=== PATIENT | female | born 1990 | race Two or more races ===

== ENCOUNTER 2016-12-06 15:58 | Outpatient (CLI) | payer MEDICAID | END 2016-12-06 15:59 | disposition home or self-care (01) | DX: O10.011 Pre-existing essential hypertension complicating pregnancy, first trimester (principal) ==

== ENCOUNTER 2016-12-16 14:36 | Outpatient (CLI) | payer MEDICAID | END 2016-12-16 14:37 | DX: Z11.3 Encounter for screening for infections with a predominantly sexual mode of transmission (principal); R82.99 Other abnormal findings in urine ==

== ENCOUNTER 2016-12-30 19:04 | Outpatient (CLI) | payer MEDICAID | END 2016-12-30 19:05 | disposition home or self-care (01) | DX: R82.99 Other abnormal findings in urine (principal); Z36 Encounter for antenatal screening of mother ==

== ENCOUNTER 2016-12-31 16:39 | Outpatient (CLI) | payer MEDICAID | END 2016-12-31 16:40 | disposition home or self-care (01) | DX: Z11.3 Encounter for screening for infections with a predominantly sexual mode of transmission (principal); Z36 Encounter for antenatal screening of mother; R82.99 Other abnormal findings in urine ==

== ENCOUNTER 2017-01-21 11:15 | Outpatient (CLI) | payer MEDICAID | END 2017-01-21 23:59 | disposition home or self-care (01) | DX: Z36 Encounter for antenatal screening of mother (principal) ==

== ENCOUNTER 2017-02-11 08:00 | Outpatient (CLI) | payer MEDICAID | END 2017-02-11 08:01 | disposition home or self-care (01) | DX: R30.0 Dysuria (principal) ==

== ENCOUNTER 2017-02-23 09:21 | Emergency (ER) | payer MEDICAID ==
[2017-02-23 09:45] LABS: RAPID STREP SCREEN REAGENT QC YELLOW (YELLOW)
[2017-02-23] MEDS ORDERED: ACETAMINOPHEN 325 MG TABLET PO ONE (09:49)
[2017-02-23] MEDS: ACETAMINOPHEN 325 MG TABLET PO STA (09:57)
--- NOTE | 2017-02-23 10:04 | ED Physician Documentation ---
History of Present Illness - Stated complaint Stated Complaint: FEVER/SORE THROAT/19 WKS PREG - Chief complaint Chief Complaint: Heent - Additonal information Additional information: hx from pt 27 female 19 weeks EGA fever mylagia sore throat minimal cough NV X 1 ill with same s complication ecept HTN for which she takes meds feeling baby move Review of Systems Constitutional: reports: Fever, Myalgias Throat: reports: Sore throat Respiratory: denies: Cough (minimal) GI: reports: Vomiting. denies: Abdominal Pain : reports: Now EGA (19 weeks) Endocrine: denies: Easy bruising / bleeding Immunocompromised: denies: Immunocompromised PD PAST MEDICAL HISTORY - Past Medical History Past Medical History: Yes Cardiovascular: Hypertension - Past Surgical History Past Surgical History: No - Present Medications Home Medications: Ambulatory Orders Medication Instructions Recorded Confirmed Metoprolol Tartrate 02/23/17 - Allergies Allergies/Adverse Reactions: Allergies Allergy/AdvReac Type Severity Reaction Status Date / Time No Known Drug Allergies Allergy Verified 02/23/17 09:31 - Social History Does the pt smoke?: No Smoking Status: Never smoker Does the pt drink ETOH?: No Does the pt have substance abuse?: No - Immunizations Immunizations are current?: Yes - POLST Patient has POLST: No PD ED PE NORMAL - Vitals Vital signs reviewed: Yes (HTN tachy) - General General: Alert and oriented X 3 - HEENT HEENT: Ears normal, Moist mucous membranes. No: Pharynx benign (erythema, no exudate seen) - Neck Neck: Supple, no meningeal sign - Cardiac Cardiac: RRR - Respiratory Respiratory: No respiratory distress, Clear bilaterally - Abdomen Abdomen: Soft, Non tender, Other (gravid) - Derm Derm: Normal color Results - Vitals Vitals: Vital Signs - 24 hr 02/23/17 02/23/17 02/23/17 09:29 10:20 11:12 Temperature 36.4 C L 36.8 C Heart Rate 132 H 114 H 112 H Respiratory 18 16 12 Rate Blood Pressure 139/79 H 117/72 120/80 O2 Saturation 100 100 100 Oxygen O2 Source Room air - Labs Labs: Laboratory Tests 02/23/17 09:26 Group A Strep Rapid Negative PD MEDICAL DECISION MAKING - ED course ED course: HR and temp better with tylenol tachycardia appreciated - felt 2/2 preg and fever and not drinking 2/2 sore throat lungs clear doubt pna no leg swelling no dyspnea cough and pt has myalgias etc similar to so doubt PE no recent local influenza activity and pt has minimal cough pt is well appearing and I do not think she is septic will dc with fever control, cepacol lozenges safe in preg, PO fluids and OB fup within 48 hr for a recheck explained all this to pt and friend/family HTN is not new for pt - she is on meds for same - only 19 weeks EGA - doubt pre- eclampsia Departure - Departure Disposition: 01 Home, Self Care Clinical Impression: Viral URI Qualifiers: Weeks of gestation: 19 weeks Qualified Code(s): Z3A.19 - 19 weeks gestation of Condition: Good Instructions: ED Viral Syndrome Follow-Up: Linda Davis ARNP [Primary Care Provider] - (for a recheck tomorrow ) Comments: The rapid strep test was negative - a throat culture will be run as well and we will call you if it is positive and you need to be on antibiotics Your lungs sound clear, I do not think you have pneumonia. Recommend tylenol 650 mg every 6 hr for the fever Cepacol lozenges for your sore throat are safe in - available over the counter. Your blood pressure was high even though you took your blood pressure medication this morning - your heart was up too likely in paert due to the fever You need to drink lots of fluids even if your throat hurts. And please follow up with your OB or PMD tomorrow for a recheck Return to the ER sooner if worse or new symptoms develop Forms: Activity restrictions Discharge Date/Time: 02/23/17 11:14
[2017-02-23 11:13] VITALS: BP 120/80
== END 2017-02-23 11:14 | disposition home or self-care (01) ==
LOC: ED 09:21
DX: O99.512 Diseases of the respiratory system complicating pregnancy, second trimester (principal); J06.9 Acute upper respiratory infection, unspecified; O98.512 Other viral diseases complicating pregnancy, second trimester; B33.8 Other specified viral diseases; O16.2 Unspecified maternal hypertension, second trimester; Z3A.19 19 weeks gestation of pregnancy
CPT/HCPCS: 87070; 87430; 99283

== ENCOUNTER 2017-02-27 22:52 | Emergency (ER) | payer MEDICAID ==
--- NOTE | 2017-02-27 23:56 | ED Physician Documentation ---
PD HPI URI - Stated complaint Stated Complaint: COUGH/SINUS - 20WK OB - Chief complaint Chief Complaint: Resp - History obtained from History obtained from: Patient - History of Present Illness Timing - onset: How many days ago (has had some congestion and cough, but worse cough for 4 days and sinus pressure with greenish discharge now for few days.) Timing details: Gradual onset, Still present (worsening recent) Associated symptoms: Chills, Nasal congestion, Sinus pain, Sore throat, Productive cough. No: Fever, Swollen nodes, Hemoptysis, Chest pain, Dyspnea, NVD Contributing factors: No: COPD / asthma Similar symptoms before: Has not had sx before Recently seen: Not recently seen Review of Systems Constitutional: reports: Fever, Chills Ears: denies: Ear pain Nose: reports: Congestion, Sinus pressure / pain Throat: reports: Sore throat Cardiac: denies: Chest pain / pressure Respiratory: reports: Cough, Wheezing GI: denies: Abdominal Pain, Nausea, Vomiting : denies: Discharge, Vaginal bleeding PD PAST MEDICAL HISTORY - Past Medical History Past Medical History: Yes Cardiovascular: Hypertension Respiratory: None 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 () - Past Surgical History Past Surgical History: No - Present Medications Home Medications: Ambulatory Orders Medication Instructions Recorded Confirmed Metoprolol Tartrate 02/23/17 Amoxicillin 500 mg PO TID #15 capsule 02/28/17 Dexamethasone [Decadron] 4 mg PO DAILY #5 tablet 02/28/17 - Allergies Allergies/Adverse Reactions: Allergies Allergy/AdvReac Type Severity Reaction Status Date / Time No Known Drug Allergies Allergy Verified 02/23/17 09:31 - Social History Does the pt smoke?: No Smoking Status: Never smoker Does the pt drink ETOH?: No Does the pt have substance abuse?: No - Immunizations Immunizations are current?: Yes - POLST Patient has POLST: No PD ED PE NORMAL - Vitals Vital signs reviewed: Yes - General General: Alert and oriented X 3, No acute distress, Well developed/nourished - HEENT HEENT: Ears normal, Moist mucous membranes, Pharynx benign, Other (some sinus tenderness to percussion) - Neck Neck: Supple, no meningeal sign, No adenopathy - Cardiac Cardiac: RRR, No murmur - Respiratory Respiratory: Other (scattered wheezing with cough. Repetitive coughing episodes. ) - Abdomen Abdomen: Soft, Non tender, Other (gravid with fundus at umbilicus. Good FHR noted. ) - Derm Derm: Normal color, Warm and dry Results - Vitals Vitals: Vital Signs - 24 hr 02/27/17 02/28/17 22:59 00:57 Temperature 37.0 C Heart Rate 110 H 109 H Respiratory 18 18 Rate Blood Pressure 127/84 H 131/83 H O2 Saturation 100 98 Oxygen O2 Source Room air PD MEDICAL DECISION MAKING - ED course Complexity details: considered differential (URI symptoms and now sinusitis more. Having cough and some wheezing. Can treat with MDI, short course steroids , can give abx for sinusitis aspect. ), d/w patient Departure - Departure Disposition: Home, Self Care Clinical Impression: Upper respiratory tract infection Qualifiers: URI type: unspecified URI Qualified Code(s): J06.9 - Acute upper respiratory infection, unspecified Sinusitis Qualifiers: Sinusitis location: frontal Chronicity: acute Recurrence: non-recurrent Qualified Code(s): J01.10 - Acute frontal sinusitis, unspecified Condition: Stable Record reviewed to determine appropriate education?: Yes Instructions: ED Sinusitis Abx Tx Follow-Up: Linda Davis ARNP [Primary Care Provider] - Prescriptions: Amoxicillin 500 mg PO TID #15 capsule Dexamethasone [Decadron] 4 mg PO DAILY #5 tablet Print Language: Malawian Comments: Drink lots of fluids. Tylenol as needed for fevers and pains. Use the Albuterol inhaler 2 puffs 4 times daily for 7-10 days. Decadron daily for 5 more days to reduce bronchiole inflammation and thus the cough. Amoxicillin 3 times daily as directed to try to help with the infection. Follow up with PMD if not improved over the next few days. Discharge Date/Time: 02/28/17 00:58
[2017-02-28] MEDS ORDERED: DEXAMETHASONE 10 MG/ML VIAL PO STA (00:15)
[2017-02-28] MEDS ORDERED: AMOXICILLIN 250 MG CAPSULE PO STA (00:15)
[2017-02-28] MEDS ORDERED: ALBUTEROL 8 GM INHALER INH STA (00:15)
[2017-02-28] MEDS ORDERED: guaiFENesin/CODEINE 5 ML UDC PO STA (00:17)
[2017-02-28] MEDS ORDERED: DEXAMETHASONE 10 MG/ML VIAL ONE (00:22)
[2017-02-28] MEDS ORDERED: AMOXICILLIN 250 MG CAPSULE PO ONE (00:22)
[2017-02-28] MEDS ORDERED: guaiFENesin/CODEINE 5 ML UDC ONE (00:22)
[2017-02-28] MEDS ORDERED: ALBUTEROL 18 GM INHALER INH ONE (00:32)
[2017-02-28 00:58] VITALS: BP 131/83
== END 2017-02-28 00:58 | disposition home or self-care (01) ==
LOC: ED 22:52
DX: O99.512 Diseases of the respiratory system complicating pregnancy, second trimester (principal); J06.9 Acute upper respiratory infection, unspecified; J01.10 Acute frontal sinusitis, unspecified; O16.2 Unspecified maternal hypertension, second trimester; Z3A.20 20 weeks gestation of pregnancy; Z36 Encounter for antenatal screening of mother
CPT/HCPCS: 76811; 94640; 99283; A9270

== ENCOUNTER 2017-02-28 07:28 | Outpatient (CLI) | payer MEDICAID ==
--- NOTE | 2017-02-28 15:50 | Ultrasound Report ---
OB ULTRASOUND: 02/28/2017 CLINICAL HISTORY: Screening of anatomy. Age by LMP today is supposedly 20.5 weeks. TECHNIQUE: Real-time scanning was performed with front office representative static images obtained. LAST MENSTRUAL PERIOD 10/08/2016 Clinical Age 20 weeks 3 days US Age 20 weeks 3 days EFW Hadlock 367 g EFW% Hadlock 57% Heart Rate 140 bpm EDC 07/15/2017 US EDC 07/15/2017 BPD Hadlock 20 weeks 2 days; Mean mm 47.4 HC Hadlock 20 weeks 1 day; Mean mm 177.2 AC Hadlock 20 weeks 4 days; Mean mm 153.8 FL Hadlock 20 weeks 6 days; Mean mm 34.5 Presentation --- Placental Location posterior Cervical Length 4.9 cm Amniotic Fluid 14.8 cm FINDINGS: Single fetus is noted . position varied from breech to transverse.. Composite gestational age by ultrasound today is 20 weeks 3 days.. anatomy at the present time appears within normal limits but because of mother's body habitus, it was difficult to optimally visualize all areas of the fetus as well as usual. head, body, spine appear normal. bladder appears normal. Normal 3-vessel umbilical cord is seen; 4-chamber view of the heart is within normal limits. Cardiac outflow tract showed no obvious abnormality. Preeti cardiac activity was noted with a heart rate of 140 BPM and regular. Placenta is posterior and no evidence of placenta previa was seen. Normal amount of amniotic fluid was noted with amniotic fluid volume index of 14.8 cm. Placenta is posterior and fundally located with umbilical cord insertion site slightly eccentric. IMPRESSION: 1. SINGLE FETUS IS NOTED. POSITION VARIED FROM BREECH TO TRANSVERSE WITH COMPOSITE GESTATIONAL AGE OF 20 WEEKS 3 DAYS. THIS CORRELATES EXACTLY WITH EXPECTED GESTATIONAL AGE BY CLINICAL LMP. EDC BY ULTRASOUND IS 07/15/2017. 2. ANATOMY ON TODAY'S EXAM APPEARS NORMAL. 3. POSTERIOR AND FUNDALLY LOCATED PLACENTA IS NOTED. 4. NORMAL AMOUNT OF AMNIOTIC FLUID WITH AMNIOTIC FLUID VOLUME INDEX OF 14.8 CM. MTDD
== END 2017-02-28 07:29 | disposition home or self-care (01) ==
LOC: DI 07:28
PROVIDERS: ATTEND Obstetrics & Gynecology
DX: Z36 Encounter for antenatal screening of mother (principal)
CPT/HCPCS: 76811

== ENCOUNTER 2017-03-14 13:44 | Outpatient (CLI) | payer MEDICAID ==
[2017-03-14 19:21] LABS: BASOPHILS # (AUTO) 0.1 10^3/uL (0.0-0.1); BASOPHILS % (AUTO) 0.7 %; BILIRUBIN,URINE NEGATIVE (NEGATIVE); EOSINOPHILS % (AUTO) 0.2 %; HGB - HEMOGLOBIN 11.4 g/dL (12.0-16.0); LYMPHOCYTES # (AUTO) 2.2 10^3/uL (1.5-3.5); LYMPHOCYTES % (AUTO) 18.4 %; MEAN CORPUSCULAR HGB CONC 32.6 g/dL (32.0-36.0); MEAN CORPUSCULAR VOLUME 79.7 fL (81.0-99.0); MEAN PLATELET VOLUME 8.7 fL (7.9-10.8); MONOCYTES # (AUTO) 0.4 10^3/uL (0.0-1.0); MONOCYTES % (AUTO) 3.7 %; PH,URINE 5.5 PH (5.0-7.5); RED BLOOD COUNT 4.39 10^6/uL (4.20-5.40); RED CELL DISTRIBUTION WIDTH 16.6 % (12.0-15.0); UNCORRECTED WHITE BLOOD COUNT 11.7 x10^3/uL; WHITE BLOOD COUNT 11.7 x10^3/uL (4.8-10.8)
[2017-03-14 19:28] LABS: CREATININE 0.6 mg/dL (0.4-1.0); URIC ACID 3.1 mg/dL (2.6-7.2)
== END 2017-03-14 13:45 | disposition home or self-care (01) ==
LOC: LAB.N 13:44
PROVIDERS: ATTEND Obstetrics & Gynecology
DX: R03.0 Elevated blood-pressure reading, without diagnosis of hypertension (principal)
CPT/HCPCS: 36415; 81001; 82565; 83615; 84450; 84550; 85025

== ENCOUNTER 2017-04-07 20:10 | Outpatient (CLI) | payer MEDICAID | END 2017-04-07 20:11 | disposition home or self-care (01) | LOC: LAB.N 20:10 | PROVIDERS: ATTEND Obstetrics & Gynecology | DX: Z36 Encounter for antenatal screening of mother (principal) | CPT/HCPCS: 36415; 82950; 85018; 86850 ==

== ENCOUNTER 2017-04-29 07:50 | Outpatient (CLI) | payer MEDICAID ==
[2017-04-29 08:42] LABS: GTT GLUCOSE,FASTING 106 mg/dL (70-100)
== END 2017-04-29 07:51 | disposition home or self-care (01) ==
LOC: LAB 07:50
PROVIDERS: ATTEND Obstetrics & Gynecology
DX: Z36 Encounter for antenatal screening of mother (principal)
CPT/HCPCS: 36415; 82951

== ENCOUNTER 2017-05-19 14:33 | Outpatient (CLI) | payer MEDICAID ==
--- NOTE | 2017-05-20 11:03 | Ultrasound Report ---
OB FOLLOWUP: 05/19/2017 CLINICAL INDICATION: Gestational diabetes, check growth. TECHNIQUE: Real-time scanning was performed with hostess party sales representative static images obtained. LAST MENSTRUAL PERIOD 10/08/2016 Clinical Age 31 weeks 6 days US Age 32 weeks 4 days EFW Hadlock 1875 g EFW% Hadlock 48% Heart Rate 150 bpm EDC 07/15/2017 US EDC 07/10/2017 BPD Hadlock 32 weeks 2 days; Mean mm 80.4 HC Hadlock 32 weeks 6 days; Mean mm 297.5 AC Hadlock 31 weeks 4 days; Mean mm 274.6 FL Hadlock 32 weeks 2 days; Mean mm 62.3 Presentation --- Placental Location posterior Cervical Length 4.7 cm Amniotic Fluid 16.2 cm FINDINGS: There is a single viable intrauterine gestation, in variable position. heart rate is 150 BPM. The placenta is posterior, without evidence of previa. Amniotic fluid volume is normal, with an NADYA of 16.2. By size, the fetus now measures 32.6 weeks (31.9 weeks by LMP dating). No free fluid or adnexal lesion is appreciated. IMPRESSION: SINGLE VIABLE INTRAUTERINE GESTATION, WITH SIZE IN KEEPING WITH LMP DATING. MTDD
== END 2017-05-19 14:34 | disposition home or self-care (01) ==
LOC: DI 14:33
PROVIDERS: ATTEND Obstetrics & Gynecology
DX: O10.413 Pre-existing secondary hypertension complicating pregnancy, third trimester (principal)
CPT/HCPCS: 76816

== ENCOUNTER 2017-05-26 10:32 | Outpatient (CLI) | payer MEDICAID ==
[2017-05-26 11:33] VITALS: BP 113/70
== END 2017-05-26 11:42 | disposition home or self-care (01) ==
LOC: WFO 10:32 → FBP 10:35 → WFO 11:42
PROVIDERS: ATTEND Obstetrics & Gynecology
DX: O10.913 Unspecified pre-existing hypertension complicating pregnancy, third trimester (principal); Z3A.32 32 weeks gestation of pregnancy
CPT/HCPCS: 59025

== ENCOUNTER 2017-06-05 11:21 | Outpatient (CLI) | payer MEDICAID ==
[2017-06-05 11:40] VITALS: BP 116/75
== END 2017-06-05 12:10 | disposition home or self-care (01) ==
LOC: WFO 11:21 → FBP 11:24 → WFO 12:10
PROVIDERS: ATTEND Obstetrics & Gynecology
DX: O24.419 Gestational diabetes mellitus in pregnancy, unspecified control (principal); O13.3 Gestational [pregnancy-induced] hypertension without significant proteinuria, third trimester; Z3A.34 34 weeks gestation of pregnancy
CPT/HCPCS: 59025

== ENCOUNTER 2017-06-10 14:53 | Outpatient (CLI) | payer MEDICAID ==
[2017-06-10 15:18] VITALS: BP 113/75
== END 2017-06-10 15:40 | disposition home or self-care (01) ==
LOC: WFO 14:53 → FBP 14:55 → WFO 15:40
PROVIDERS: ATTEND Obstetrics & Gynecology
DX: O10.913 Unspecified pre-existing hypertension complicating pregnancy, third trimester (principal); Z3A.35 35 weeks gestation of pregnancy
CPT/HCPCS: 59025

== ENCOUNTER 2017-06-13 08:00 | Outpatient (CLI) | payer MEDICAID | END 2017-06-13 08:01 | disposition home or self-care (01) | LOC: LAB.R 08:00 | PROVIDERS: ATTEND Obstetrics & Gynecology | DX: Z34.83 Encounter for supervision of other normal pregnancy, third trimester (principal) | CPT/HCPCS: 87081 ==

== ENCOUNTER 2017-06-16 14:49 | Outpatient (CLI) | payer MEDICAID ==
[2017-06-16 15:28] VITALS: BP 115/72
== END 2017-06-16 15:30 | disposition home or self-care (01) ==
LOC: WFO 14:49 → FBP 14:51 → WFO 15:30
PROVIDERS: ATTEND Obstetrics & Gynecology
DX: O10.913 Unspecified pre-existing hypertension complicating pregnancy, third trimester (principal); Z3A.35 35 weeks gestation of pregnancy
CPT/HCPCS: 59025

== ENCOUNTER 2017-06-23 14:48 | Outpatient (CLI) | payer MEDICAID ==
[2017-06-23 15:02] VITALS: BP 111/78
== END 2017-06-23 15:30 | disposition home or self-care (01) ==
LOC: WFO 14:48 → FBP 14:50 → WFO 15:30
PROVIDERS: ATTEND Obstetrics & Gynecology
DX: O24.419 Gestational diabetes mellitus in pregnancy, unspecified control (principal); O13.3 Gestational [pregnancy-induced] hypertension without significant proteinuria, third trimester; Z3A.36 36 weeks gestation of pregnancy
CPT/HCPCS: 59025

== ENCOUNTER 2017-06-30 14:57 | Outpatient (CLI) | payer MEDICAID ==
[2017-06-30 15:41] VITALS: BP 113/69
== END 2017-06-30 15:55 | disposition home or self-care (01) ==
LOC: WFO 14:57 → FBP 15:00 → WFO 15:55
PROVIDERS: ATTEND Obstetrics & Gynecology
DX: O10.913 Unspecified pre-existing hypertension complicating pregnancy, third trimester (principal); Z3A.37 37 weeks gestation of pregnancy
CPT/HCPCS: 59025

== ENCOUNTER 2017-07-07 14:51 | Outpatient (CLI) | payer MEDICAID ==
[2017-07-07 15:12] VITALS: BP 114/76
== END 2017-07-07 15:37 | disposition home or self-care (01) ==
LOC: WFO 14:51 → FBP 14:54 → WFO 15:37
PROVIDERS: ATTEND Obstetrics & Gynecology
DX: O24.419 Gestational diabetes mellitus in pregnancy, unspecified control (principal); O13.3 Gestational [pregnancy-induced] hypertension without significant proteinuria, third trimester; Z3A.38 38 weeks gestation of pregnancy
CPT/HCPCS: 59025

== ENCOUNTER 2017-07-14 14:53 | Outpatient (CLI) | payer MEDICAID ==
[2017-07-14 15:18] VITALS: BP 122/84
== END 2017-07-14 16:15 | disposition home or self-care (01) ==
LOC: WFO 14:53 → FBP 15:02 → WFO 16:15
PROVIDERS: ATTEND Obstetrics & Gynecology
DX: O10.913 Unspecified pre-existing hypertension complicating pregnancy, third trimester (principal); Z3A.39 39 weeks gestation of pregnancy
CPT/HCPCS: 59025

== ENCOUNTER 2017-07-15 17:12 | Inpatient (IN) | payer MEDICAID ==
[2017-07-15] MEDS ORDERED: SODIUM CHLORIDE FLUSH 0.9% 10 ML SYRINGE IVP PRN (19:01)
[2017-07-15] MEDS ORDERED: fentaNYL 100 MCG/2 ML VIAL IVP PRN (19:07)
[2017-07-15] MEDS ORDERED: ACETAMINOPHEN 325 MG TABLET PO PRN (19:07)
[2017-07-15 21:06] LABS: BASOPHILS # (AUTO) 0.1 10^3/uL (0.0-0.1); BASOPHILS % (AUTO) 0.5 %; EOSINOPHILS % (AUTO) 0.1 %; HGB - HEMOGLOBIN 12.6 g/dL (12.0-16.0); LYMPHOCYTES # (AUTO) 2.2 10^3/uL (1.5-3.5); LYMPHOCYTES % (AUTO) 20.4 %; MEAN CORPUSCULAR HEMOGLOBIN 26.2 pg (27.0-31.0); MEAN CORPUSCULAR HGB CONC 33.3 g/dL (32.0-36.0); MEAN CORPUSCULAR VOLUME 78.9 fL (81.0-99.0); MEAN PLATELET VOLUME 9.3 fL (7.9-10.8); MONOCYTES # (AUTO) 0.5 10^3/uL (0.0-1.0); MONOCYTES % (AUTO) 4.4 %; NEUTROPHILS # (AUTO) 7.9 10^3/uL (1.5-6.6); NEUTROPHILS % (AUTO) 74.6 %; RED BLOOD COUNT 4.81 10^6/uL (4.20-5.40); RED CELL DISTRIBUTION WIDTH 15.9 % (12.0-15.0); UNCORRECTED WHITE BLOOD COUNT 10.6 x10^3/uL; WHITE BLOOD COUNT 10.6 x10^3/uL (4.8-10.8)
[2017-07-15] MEDS: LABETALOL 100 MG TABLET PO SCH (21:11)
[2017-07-15 21:26] LABS: HEMOGLOBIN A1C 0.54 g/dL
[2017-07-15] MEDS ORDERED: SODIUM CHLORIDE FLUSH 0.9% 10 ML SYRINGE IVP SCH (22:00)
[2017-07-16] MEDS ORDERED: DINOPROSTONE 10 MG SUPP VG ONE (07:30)
[2017-07-16] MEDS: LABETALOL 100 MG TABLET PO SCH ×2 (09:43→21:34)
--- NOTE | 2017-07-16 11:54 | HISTORY & PHYSICAL EXAMINATION ---
DATE OF ADMISSION: 07/15/2017 IDENTIFICATION: This is a 27-year-old G1, P0, with a 40-week 0-day intrauterine . EDC is 07/2017, consistent with a 9-week ultrasound. HISTORY OF PRESENT ILLNESS: She is a patient of [facility] [place] [facility], whom we have been seeing since 9 weeks of gestation on 12/16/2016. The patient's has been significant for chronic hy pertension. The patient was already on metoprolol when she became . This was switched over to labetalol at 22 weeks of gestation. She has been doing well on 100 mg 1 tab p.o. b.i.d. The patient was also diagnosed with gestational diabetes class A1. She had an abnormal 1-hour GTT on 04/07/2017 o f 158. The resultant 3-hour GTT was significant for elevated fasting, 1-hour, and 2-hour results of 1 06, 212, and 176, respectively. The 3-hour test result was normal at 115. The patient has been doing peripheral capillary glucose checks, and they have been well controlled just by diet. The patient has been getting non-stress tests since 32 weeks of gestation secondary to chronic hypertension, on labe talol. The patient presented today for her routine visit at 40 weeks 0 days of gestation. A bedsid e ultrasound revealed that she had a grade 3 placenta and a decreased amniotic fluid index of 4.61 cm . The fetus was noted to be in a vertex presentation. Cervical examination showed that the patient wa s closed, thick, and high. Given that the patient was full term, has oligohydramnios, and is a chroni c hypertensive on medications, I have recommended to the patient that we proceed to delivery. Of sign ificance is the oligohydramnios, most likely secondary to an aging placenta and may lead to the incre ased risk of mortality. I would recommend for the patient to have Cervidil ripening overnight a nd hopefully start to try Pitocin in the morning. After all of the patient's questions were answered to her satisfaction, she verbalized her desire to proceed with induction of labor. Currently, we are waiting for a nurse from Labor and Delivery in order to accommodate the patient's clinical situation. The patient otherwise states that her baby boy is moving well. She denies any contractions, vaginal b leeding, or loss of fluid. She is accompanied today by her . PAST MEDICAL HISTORY 1. Morbid obesity with a BMI of 40. 2. Chronic hypertension. 3. Hemorrhoids. 4. Lumbar pain. PAST SURGICAL HISTORY: None. ALLERGIES: NO KNOWN DRUG ALLERGIES. MEDICATIONS 1. vitamins. 2. Labetalol 100 mg 1 tab p.o. b.i.d. 3. Proctofoam HC. SOCIAL HISTORY: She denies any tobacco, alcohol, or illicit drug use. The patient is from [place] , and this is a baby boy. She has a sister. Her preferred pharmacy is [email or web address]. Her PCP is a nurse Feliberto head. PAST OBSTETRICAL HISTORY: Current. PAST GYNECOLOGIC HISTORY: She denies any abnormal Pap smears or sexually transmitted diseases. FAMILY HISTORY: Mother with diabetes and brother with hypertension. REVIEW OF SYSTEMS: Negative unless otherwise stated. The patient denies any nausea, vomiting, fevers, chills, diarrhea, or constipation. OBJECTIVE VITAL SIGNS: Blood pressure is 110/74. Weight is 252 pounds. GENERAL: The patient is a well-developed, well-nourished Burmese in no apparent distress. She is alert and oriented x3. The patient does speak limited Turkmen and is fluid in Kinyarwanda. HEENT: Within normal limits. CARDIOVASCULAR: Rate is regular. No murmurs or rubs. PULMONARY: Lungs clear to auscultation bilaterally. ABDOMEN: Gravid and nontender. Fundal height is 40 cm. Estimated weight is 8-1/2 pounds. The fe tus is vertex by ultrasound, with an amniotic fluid index of 4.61 cm. LABORATORY DATA: Urinalysis is negative for protein and glucose. Her labs showed she is chla mydia and gonorrhea negative. Blood type is A-positive. HIV is negative. RPR nonreactive. Rubella non -immune. Hepatitis B surface antigen is nonreactive. One-hour GTT on 12/23/2016 was 129. Repeat was 1 58. Quad screen is negative. A 3-hour GTT showed a fasting of 106, a 1-hour of 112, a 2-hour of 176, and a 3-hour of 115. GBS is negative. Baseline preeclampsia panel obtained on 03/14/2017 showed a cre atinine 0.6, GFR 120, uric acid 3.1, AST 38, LDH 125. Platelets 230. anatomical survey is withi n normal limits and consistent with dates. The placenta is posterior. Cervical length is 4.9 cm. Amni otic fluid index is 14.8 cm. ASSESSMENT 1. A 27-year-old G1, P0, with a 40-0/7-week intrauterine . 2. Oligohydramnios, with an amniotic fluid index of 4.61 cm. 3. Controlled chronic hypertension, on labetalol 100 mg 1 tab p.o. b.i.d. 4. Gestation diabetes mellitus A1. 5. Cervix remote from delivery. PLAN 1. We will begin cervical ripening with Cervidil overnight once we have gotten hold of the RN to help take care of the patient. 2. We will get a CBC with type and hold. 3. Epidural for pain relief when the patient desires. 4. Closely monitor the patient's blood pressure for signs and symptoms of superimposed preeclampsia. Her blood pressure has been controlled well throughout the otherwise. 5. We will obtain a random glucose as well as a hemoglobin A1c. JOB #: [id number] EXT JOB #:[id number]
[2017-07-16] MEDS ORDERED: DINOPROSTONE 10 MG SUPP VG SCH (20:33)
[2017-07-16] MEDS ORDERED: SODIUM CHLORIDE FLUSH 0.9% 10 ML SYRINGE IVP PRN (20:37)
--- NOTE | 2017-07-16 21:43 | HISTORY & PHYSICAL EXAMINATION ---
DATE OF ADMISSION: 07/16/2017 DIAGNOSES 1. A 40-week gestation, induction candidate. 2. Chronic hypertension. 3. Gestational diabetes, diabetes class A1. 4. Oligohydramnios. HISTORY OF THE PRESENT ILLNESS: The patient is a 27-year-old primigravida at 40 weeks 0 days who [facility] Her history is remarkable for chronic hypertension. She was on lisinopril prior to and changed to labetalol. Baseline blood pressure was 120/80 and has stayed normotensive. Today's office blood pressure was 110/74 , and she was negative for protein. Additionally, she has gestational diabetes and has maintained target blood glucoses with diet and exercise. Obesity is a concern. Her baseline weight was 240 and most recently 252. LMP October 08, 2016. EDC dates at July 15, 2017. Nine-week ultrasound at December 2012 yields an EDC of July 17. Therefore, we will use July 15, 2017 as confirmed EDC. BASELINE LABS: GC chlamydia screen negative. Blood type A positive. Antibody screen negative. HIV negative. Glucose challenge test 158. Three-hour GTT (106 fasting, 212 one hour, 176 two hours, 115 three hours) GBS status negative. PAST MEDICAL HISTORY: Hypertension, as noted in HPI. No history of diabetes. FAMILY HISTORY: Diabetes and CAD, mother; hypertension, brother; maternal relatives, hyperlipidemia, osteoarthritis. No inheritable diseases known or genetic conditions. ALLERGIES: NO KNOWN DRUG ALLERGIES. MEDICATIONS 1. ProctoFoam HC. 2. Labetalol 100 b.i.d. 3. Glucose testing supplies. PHYSICAL EXAMINATION: GENERAL: Alert, oriented, pleasant demeanor. VITAL SIGNS: Blood pressure HEENT: Supple neck. No thyromegaly. Dentition in good repair. EOMI. Nonicteric sclerae. LUNGS: Clear to auscultation, distant. CARDIAC: Regular, no murmur or gallop. ABDOMEN: No tenderness. No organomegaly. UTERUS: 41+ cm, acontractile, normal resting tone without tenderness. Escobar's , vertex. Estimated weight 8 lbs EXTERNAL GENITALIA: No lesions. VAGINA: No blood or discharge. CERVIX: Dilation 1, effacement 50%, station -1, and medium consistency, post. Hawkins score equals 5 PELVIS: narrow angle, OB Conjugate +12.5 EXTREMITIES: Nonedematous, normal motion. SKIN: No obvious rash. NEUROLOGIC: Grossly intact.reflexes 2+/= ADMISSION LABS: Pending. ASSESSMENT: Oligohydramnios. The patient is a candidate for induction at 40 weeks due to her hypertension and diabetes. Recent ultrasound finds the fluid low at 4.6. We discussed induction including risks & benefits. She desires epidural when appropriate. PLAN: Cytotec cervical ripening followed by Pitocin induction when applicable. JOB #: [id number] EXT JOB #:[id number] [facility]
[2017-07-16] MEDS ORDERED: SODIUM CHLORIDE FLUSH 0.9% 10 ML SYRINGE IVP SCH (22:00)
[2017-07-17] MEDS: ONDANSETRON 4 MG/2 ML VIAL IVP PRN ×2 (03:15→20:25)
[2017-07-17] MEDS: LACTATED RINGERS 1,000 ML IV SCH ×5 (04:08→21:22)
[2017-07-17] MEDS ORDERED: fent/BUPIV 2 MCG/0.125% 250 ML EP ONE (04:31)
[2017-07-17] MEDS: LABETALOL 100 MG TABLET PO SCH ×2 (09:29→22:57)
--- NOTE | 2017-07-17 16:08 | PROVIDER PROGRESS NOTE ---
Labor Progress Note - Uterine Monitoring Uterine Monitoring Mode: positive: External toco, Palpation Contraction Intensity: positive: Mild to moderate Uterine Resting Tone: positive: Soft - Monitoring Monitor Mode: positive: External ultrasound Heart Rate Baseline: 130 - 140 Heart Rate Variability: positive: Moderate (6-25 bmp) Accelerations: positive: Present, 15x15 Decelerations: positive: Variable (Mild) Strip Review: positive: Category I - Vaginal Exam Dilation (in cm): 6 Effacement (%): 80% Station: -2 Cervical Position: Midposition - Labor Progress Note Labor Progress Note/Additional Text: Mrs. Purcell was evaluated this morning at 745 and found to be dilated to 6-7 cm but still -1-2 station. Her contractions had picked upFrequency and intensity. At noon time she suspected rupture of membranes and faintly nitrazine positive but fern negative. She continues to note palpable contractions. We discussed rupture of membranes and placement of IUPC. Risks and benefits were discussed with her sister as an paint sprayer sandblaster. Most recent cervical check was disappointing in that the station remained to -2. The bony pelvis seems android andborderline at best with a narrow angle and sharp spines. Patient rejects IUPC in favor of delivery.We reviewed the risks and benefits of section. Risks included blood loss, transfusion, infection, damage to bladder or bowel and on rare case baby. Preparations are being made for section.
[2017-07-17] MEDS: CITRIC ACID/SODIUM CITRATE 15 ML UDC PO SCH ×2 (16:46→16:48)
[2017-07-17] MEDS ORDERED: LACTATED RINGERS 1,000 ML IV ONE ×2 (17:10→18:06)
[2017-07-17] MEDS ORDERED: ePHEDrine 50 MG/ML VIAL IVP ONE (17:30)
[2017-07-17] MEDS ORDERED: LIDOCAINE-MPF 2% 5 ML VIAL IM ONE (17:30)
[2017-07-17] MEDS ORDERED: CARBOPROST TROMETHAMINE 250 MCG/ML AMP IM ONE (17:30)
[2017-07-17] MEDS ORDERED: MORPHINE PF 5 MG/10 ML AMP EP ONE (17:30)
[2017-07-17] MEDS ORDERED: ceFAZolin 1 GM VIAL IV ONE (17:30)
[2017-07-17] MEDS ORDERED: ONDANSETRON 4 MG/2 ML VIAL IVP ONE (17:30)
[2017-07-17] MEDS ORDERED: OXYTOCIN 10 UNIT/ML VIAL IV ONE (17:30)
[2017-07-17] MEDS ORDERED: MORPHINE 2 MG/ML CARPUJECT ONE (18:00)
[2017-07-17] MEDS ORDERED: ZOLPIDEM 5 MG TABLET PO PRN (18:44)
[2017-07-17] MEDS ORDERED: HYDROCORTISONE/PRAMOXINE 10 GM PR PRN (18:44)
[2017-07-17] MEDS ORDERED: diphenhydrAMINE 25 MG CAPSULE PO PRN (18:44)
[2017-07-17] MEDS ORDERED: WITCH HAZEL/GLYCERIN 1 EACH MED..PAD TOP PRN (18:44)
[2017-07-17] MEDS ORDERED: SODIUM CHLORIDE FLUSH 0.9% 10 ML SYRINGE IVP PRN (18:44)
[2017-07-17] MEDS ORDERED: OXYTOCIN/SODIUM CHLORIDE 250 ML IV ONE (18:58)
[2017-07-17] MEDS ORDERED: LACTATED RINGERS 1,000 ML IV SCH (19:00)
[2017-07-17] MEDS ORDERED: IBUPROFEN 600 MG TABLET PO SCH (19:00)
[2017-07-17] MEDS: ACETAMINOPHEN 500 MG TABLET PO SCH (20:27)
[2017-07-17] MEDS ORDERED: SODIUM CHLORIDE FLUSH 0.9% 10 ML SYRINGE IVP SCH (22:00)
[2017-07-17] MEDS ORDERED: KETOROLAC 30 MG/ML VIAL IVP SCH (22:00)
[2017-07-18] MEDS: IBUPROFEN 600 MG TABLET PO SCH ×2 (04:40→12:07)
[2017-07-18] MEDS: ACETAMINOPHEN 500 MG TABLET PO SCH ×3 (04:40→19:53)
[2017-07-18] MEDS: LACTATED RINGERS 1,000 ML IV SCH (04:44)
[2017-07-18 06:01] LABS: BASOPHILS % (AUTO) 0.1 %; HCT - HEMATOCRIT 31.6 % (37.0-47.0); HGB - HEMOGLOBIN 10.2 g/dL (12.0-16.0); LYMPHOCYTES # (AUTO) 1.5 10^3/uL (1.5-3.5); LYMPHOCYTES % (AUTO) 10.9 %; MEAN CORPUSCULAR HGB CONC 32.4 g/dL (32.0-36.0); MEAN CORPUSCULAR VOLUME 80.1 fL (81.0-99.0); MEAN PLATELET VOLUME 9.5 fL (7.9-10.8); MONOCYTES # (AUTO) 0.6 10^3/uL (0.0-1.0); MONOCYTES % (AUTO) 4.2 %; NEUTROPHILS # (AUTO) 11.7 10^3/uL (1.5-6.6); NEUTROPHILS % (AUTO) 84.8 %; RED BLOOD COUNT 3.94 10^6/uL (4.20-5.40); RED CELL DISTRIBUTION WIDTH 15.8 % (12.0-15.0); UNCORRECTED WHITE BLOOD COUNT 13.9 x10^3/uL; WHITE BLOOD COUNT 13.9 x10^3/uL (4.8-10.8)
[2017-07-18] MEDS: DOCUSATE SODIUM 100 MG CAPSULE PO SCH ×2 (08:06→20:56)
[2017-07-18] MEDS: oxyCODONE 5 MG TABLET PO PRN ×3 (08:10→16:24)
--- NOTE | 2017-07-18 10:24 | OPERATIVE REPORT ---
DATE OF SURGERY: 17 July 2017 PREOPERATIVE DIAGNOSES 1. Failure to descend despite adequate trial of labor. 2. Induction for oligohydramnios. 3. Borderline pelvis. 4. Chronic hypertension. 5. Gestational diabetes. POSTOPERATIVE DIAGNOSES 1. Successful yielding a living male infant. 2. Failure to descend despite adequate trial of labor. 3. Induction for oligohydramnios. 4. Borderline pelvis. 5. Chronic hypertension. 6. Gestational diabetes. PROCEDURE: Primary lower segment transverse section / Aided with vacuum and then forceps SURGEON: Amos Taylor MD, FACOG, FICS. SCULPTURE INSTRUCTOR: Puma Gonzales, certified nurse homebirth midwife, [employer]E PLANT OPERATOR. SPORTS LEADERSHIP INSTRUCTOR: Junior Quiroga, certified nurse administrative assistant data entry. HAND WASHER: Arya Thurman MD. (Pediatrics) ANESTHESIA: Epidural. COMPLICATIONS: None. ESTIMATED BLOOD LOSS: 700. DRAINS: Osuna with clear urine. MEDICATIONS: Ancef 2 grams. FINDINGS: * A living male was born at 1739 hours weighing 6 pounds 15 ounces with Apgars of 9/9. There was no significant trauma. Forceps application was symmetric without any bruises or skin cuts. Reference Dr. Thurman's notes. Arterial cord pH pending. * Placenta was removed intact and seemed to be grade 2. There was a 3-vessel cord without significant cord entanglement. * There were no myometrial defects or septa. Both ovaries appeared to be normal , as did the tubes. TECHNIQUE: Serial exams found forward progress of labor stopped at 6 cm and at first 0 station. Immediately prior to , station had drifted back up to - 2. heart tracing remained category 1. Clinical impression of the pelvis was that it was android with borderline fit. Preoperatively, risks, benefits, and alternatives were discussed with the patient via an vamp cut out worker. Patient is aware of the anesthesia risk, the infection risk, blood loss, transfusion, damage to bowel, bladder, or even fetus. The patient was brought to the operating room and placed in the supine position. She was uneventfully anesthetized with an epidural drip. Anesthesia level was confirmed through level T10. She was prepped and draped in the customary sterile fashion. A timeout briefing was done per protocol. Abdominal wall was uneventfully opened with a Pfannenstiel incision. There was a sizable fat pad and intravisceral fat. A curvilinear hysterotomy was made with a knife and then extended with finger traction. The mud tank operator secured the vertex with his right hand from a ROT to MYLES position. The physician office assistant applied a moderate amount of pressure and the head was guided to the hysterotomy wound. There was tissue resistance due to the anatomy and obesity. The hysterotomy was extended with bandage scissors. Next, a Kiwi suction cup was placed on the vertex and pumped to the green zone. A moderate amount of traction was placed; however, the head was still restricted by soft tissue dystocia. Incision was converted to a Maylard incision by partially transecting the rectus muscles. The forceps blades were brought to the field. After ascertaining position , the forceps were applied and with traction respecting the geometry of the wound & pelvic anatomy, the head was uneventfully delivered. Shoulders were delivered without difficulty. Cord was doubly clamped and transected. The was handed to Dr. Thurman, who was in attendance. Cord blood and cord gas samples were sent. The uterus was exteriorized and the placenta expressed intact with gentle uterine massage. The uterus was slow to respond to massage, and Pitocin and 1 amp of Hemabate IM was given. There were fragments of decidual membrane on the endometrium, which was uneventfully removed. We marked limits of the hysterotomy wound with ring forceps. There was no extension. The hysterotomy wound was closed in 2 parts, first with a running nterlocked stitch of 2-0 Vicryl followed by an imbricating Cardinal stitch of 0 Vicryl. This provided excellent hemostasis. It was chosen not to reappose the bladder flap since it would move the bladder high onto the uterine fundus. The uterus was placed back in the abdomen. The abdominal cavity was doubly lavaged with warm normal saline and all clots were removed. All surgical sites were inspected and found to be hemostatically secure. The peritoneum was closed with a running stitch of 2-0 Vicryl. The Maylard incision of the rectus muscle was reapproximated with interrupted stitches of 0 Vicryl. The fascia was closed in 2 parts with running stitches of 0 Vicryl. Subcutaneous space was closed with interrupted stitches of 2-0 Vicryl. Skin was closed with a running subcuticular stitch of 4-0 Vicryl and Dermabond dressing. At the termination of the case, all sponge, needle, and instrument counts were confirmed as correct. DISPOSITION: The patient was uneventfully aroused and taken to the recovery room in good condition. Mother, baby, and father all bonded well. JOB #: [id number] EXT JOB #:[id number] MTDD
--- NOTE | 2017-07-18 12:09 | PROVIDER PROGRESS NOTE ---
Subjective - General Admit Date: 07/16/17 Procedure Date: 07/17/17 Post Op Days: 1 Procedure Performed: Prior lower segment transverse section; delivery aided with forcep - Review of Systems Wound/Incisions: positive: Other (Bandage dry and intact) Drain Type: Osuna removed General: positive: No symptoms, Other (Happy and nursing infant; happy also and involved in infant care) HEENT: positive: No symptoms Pulmonary: positive: No symptoms Cardiovascular: positive: No symptoms Gastrointestinal: positive: Flatus Genitourinary: positive: Other (Non-foul lochia rubra) Musculoskeletal: positive: No symptoms Skin: positive: No symptoms Neurological: Psychiatric: positive: No symptoms, Other (Upbeat mood) Objective - Patient Data Vital Signs: Vital Signs x48h Temp Pulse Resp BP Pulse Ox 07/18/17 08:30 98.6 F 93 16 113/63 97 Intake & Output: Intake and Output Totals x24h 07/16/17 07/17/17 07/18/17 23:59 23:59 23:59 Intake Total 3687.5 1650 Output Total 751 251 Balance 2936.5 1399 - Lab Results Lab Results: 07/18/17 05:18 07/15/17 20:55 Other Lab Results: Lab Results x24hrs 07/18/17 07/17/17 Range/Units 05:18 18:42 WBC 13.9 H (4.8-10.8) x10^3/uL RBC 3.94 L (4.20-5.40) 10^6/uL Hgb 10.2 L (12.0-16.0) g/dL Hct 31.6 L (37.0-47.0) % MCV 80.1 L (81.0-99.0) fL MCH 26.0 L (27.0-31.0) pg MCHC 32.4 (32.0-36.0) g/dL RDW 15.8 H (12.0-15.0) % Plt Count 154 (130-450) 10^3/uL MPV 9.5 (7.9-10.8) fL Neut # 11.7 H (1.5-6.6) 10^3/uL Lymph # 1.5 (1.5-3.5) 10^3/uL Marshall # 0.6 (0.0-1.0) 10^3/uL Eos # 0.0 (0.0-0.7) 10^3/uL Baso # 0.0 (0.0-0.1) 10^3/uL Absolute Nucleated RBC 0.01 x10^3/uL Nucleated RBC % 0.0 /100WBC POC Whole Bld Glucose 78 (70 - 100) mg/dL - Current Medications Current Medications: Current Medications Generic Name Dose Route Start Last Admin Trade Name Freq PRN Reason Stop Dose Admin Acetaminophen 1,000 mg 07/17/17 19:00 07/18/17 04:40 Tylenol PO 1,000 mg Q8H MARCIANO Administration Docusate Sodium 100 mg 07/17/17 21:00 07/18/17 08:06 Colace 100mg Capsule PO 100 mg BID MARCIANO Administration Fentanyl 50 mcg 07/15/17 19:07 07/17/17 04:07 Fentanyl IVP 50 mcg Q1H PRN Administration PAIN Lactated Ringer's 1,000 mls @ 150 mls/hr 07/16/17 21:00 07/18/17 04:44 Lr IV 250 mls/hr .Q6H40M MARCIANO Administration Ibuprofen 600 mg 07/18/17 04:00 07/18/17 04:40 Motrin PO 600 mg Q6H MARCIANO Administration Ketorolac Tromethamine 30 mg 07/17/17 22:00 07/17/17 21:44 Toradol Inj IVP 07/22/17 21:59 30 mg ONCE MARCIANO Administration Labetalol HCl 100 mg 07/15/17 21:00 07/17/17 22:57 Trandate PO Not Given BID MARCIANO Ondansetron HCl 4 mg 07/15/17 19:07 07/17/17 20:25 Zofran Inj IVP 4 mg Q4HR PRN Administration Nausea / Vomiting Oxycodone HCl 5 mg 07/17/17 18:44 07/18/17 08:10 Roxicodone PO 5 mg Q4HR PRN Administration PAIN Exam - Exam Vital Signs: Vital Signs (72 hours) 07/15/17 07/15/17 07/16/17 17:35 21:00 00:55 Temperature 98.7 F 98.4 F 98.2 F Heart Rate [ 64 81 80 Monitoring electrodes] Respiratory 16 18 16 Rate Blood Pressure 124/84 H 123/71 115/65 [Right Brachial artery] O2 Saturation 100 100 100 07/16/17 07/16/17 07/16/17 04:29 06:55 07:52 Temperature 98.4 F 98.1 F 98.6 F Heart Rate [ 79 78 86 Monitoring electrodes] Respiratory 16 16 18 Rate Blood Pressure 121/70 124/78 115/75 [Right Brachial artery] O2 Saturation 100 100 100 07/16/17 07/16/17 07/16/17 12:02 16:20 20:04 Temperature 98.1 F 98.6 F 98.2 F Heart Rate [ 87 75 79 Monitoring electrodes] Respiratory 18 16 16 Rate Blood Pressure 123/75 123/68 130/65 [Right Brachial artery] O2 Saturation 100 99 100 07/17/17 07/17/17 07/17/17 01:00 18:38 18:43 Temperature 98.1 F Heart Rate [ 78 Monitoring electrodes] Respiratory 16 Rate Blood Pressure 125/69 [Right Brachial artery] O2 Saturation 100 100 98 07/17/17 07/17/17 07/17/17 18:50 18:55 19:00 Temperature Heart Rate [ Monitoring electrodes] Respiratory Rate Blood Pressure [Right Brachial artery] O2 Saturation 98 98 98 07/17/17 07/17/17 07/17/17 19:05 19:10 19:15 Temperature Heart Rate [ 75 Monitoring electrodes] Respiratory Rate Blood Pressure 110/73 [Right Brachial artery] O2 Saturation 98 98 99 07/17/17 07/17/17 07/17/17 19:49 20:00 20:15 Temperature 99.0 F Heart Rate [ 74 Monitoring electrodes] Respiratory 16 Rate Blood Pressure 116/69 119/62 122/71 [Right Brachial artery] O2 Saturation 95 07/17/17 07/17/17 07/17/17 20:30 20:45 21:00 Temperature Heart Rate [ 80 Monitoring electrodes] Respiratory Rate Blood Pressure 111/61 119/97 H 109/63 [Right Brachial artery] O2 Saturation 97 07/17/17 07/18/17 07/18/17 22:59 00:31 03:39 Temperature 98.8 F 98.1 F 98.1 F Heart Rate [ 64 81 89 Monitoring electrodes] Respiratory 16 16 16 Rate Blood Pressure 110/64 112/69 108/57 L [Right Brachial artery] O2 Saturation 96 98 98 07/18/17 08:30 Temperature 98.6 F Heart Rate [ 93 Monitoring electrodes] Respiratory 16 Rate Blood Pressure 113/63 [Right Brachial artery] O2 Saturation 97 General: Alert, Oriented x3, No acute distress HEENT: Mucous membr. moist/pink Lungs: Clear to auscultation Cardiovascular: Regular rate, Normal S1, Normal S2, No murmurs Abdomen: Normal bowel sounds, No tenderness, Other (Uterus firm nontender 19 week size) Extremities: Other (Mild pedal edema) Skin: No rashes Neurological: Normal speech, Normal tone, Sensation intact Psych/Mental Status: Mood NL Assessment/Plan - Assessment/Plan Assessment: POSTOPERATIVE COURSE * Patient recovering well with her pain control. Difficult section requiring forceps to effectively deliver. doing well. Patient recovering to normal diet and activity. * Debriefed Dr. Noris Domingo, OB cross coverage who will be assuming care. Plan: POSTOPERATIVE * Patient is recovering well from her section and resuming normal activity and diet. She is nursing without major difficulty. Mother and father both involved in childcare. * Debrief Dr. Noris Domingo, OB cross covering who will be assuming responsibility for care
[2017-07-18] MEDS: LABETALOL 100 MG TABLET PO SCH (12:55)
[2017-07-18] MEDS: CELECOXIB 100 MG CAPSULE PO SCH ×2 (16:24→20:56)
[2017-07-18] MEDS: oxyCODONE 5 MG TABLET PO SCH ×2 (19:53→23:28)
[2017-07-18] MEDS: SIMETHICONE CHEW 80 MG TABLET PO SCH (20:56)
[2017-07-18] MEDS ORDERED: LABETALOL 100 MG TABLET PO SCH (21:00)
[2017-07-19] MEDS: oxyCODONE 5 MG TABLET PO SCH ×5 (04:00→23:49)
[2017-07-19] MEDS: ACETAMINOPHEN 500 MG TABLET PO SCH ×3 (04:00→20:23)
[2017-07-19] MEDS: DOCUSATE SODIUM 100 MG CAPSULE PO SCH ×2 (08:30→20:23)
[2017-07-19] MEDS: oxyCODONE 5 MG TABLET ONE ×2 (08:31→20:24)
--- NOTE | 2017-07-19 09:23 | PROVIDER PROGRESS NOTE ---
Subjective - General Admit Date: 07/16/17 Procedure Date: 07/17/17 Post Op Days: 2 Procedure Performed: Prior lower segment transverse section; delivery aided with forcep - Review of Systems Wound/Incisions: positive: Other (Bandage dry and intact) Drain Type: Osuna removed General: positive: No symptoms, Other (Happy and nursing infant; happy also and involved in infant care) HEENT: positive: No symptoms Pulmonary: positive: No symptoms Cardiovascular: positive: No symptoms Gastrointestinal: positive: Flatus Genitourinary: positive: Other (Non-foul lochia rubra) Musculoskeletal: positive: No symptoms Skin: positive: No symptoms Psychiatric: positive: No symptoms, Anxiety, Other (Patient expresses anxiety concerning her ability to breast-feed and care for her . She has had a sleepless night mostly due to infant care.She request another day of hospitalization) Objective - Patient Data Vital Signs: Vital Signs x48h Temp Pulse Resp BP Pulse Ox 07/19/17 09:04 98.6 F 87 12 124/70 94 07/19/17 04:21 97.7 F 88 20 108/58 L 95 Intake & Output: Intake and Output Totals x24h 07/17/17 07/18/17 07/19/17 23:59 23:59 23:59 Intake Total 3687.5 3400 700 Output Total 751 701 Balance 2936.5 2699 700 - Lab Results Lab Results: 07/18/17 05:18 07/15/17 20:55 - Current Medications Current Medications: Current Medications Generic Name Dose Route Start Last Admin Trade Name Freq PRN Reason Stop Dose Admin Acetaminophen 1,000 mg 07/17/17 19:00 07/19/17 04:00 Tylenol PO 1,000 mg Q8H MARCIANO Administration Celecoxib 200 mg 07/18/17 16:00 07/18/17 20:56 Celebrex PO 200 mg BID MARCIANO Administration Docusate Sodium 100 mg 07/17/17 21:00 07/19/17 08:30 Colace 100mg Capsule PO 100 mg BID MARCIANO Administration Lactated Ringer's 1,000 mls @ 150 mls/hr 07/16/17 21:00 07/18/17 12:51 Lr IV Infused .Q6H40M MARCIANO Infusion Labetalol HCl 100 mg 07/15/17 21:00 07/18/17 12:55 Trandate PO Not Given BID [facility] Ondansetron HCl 4 mg 07/15/17 19:07 07/17/17 20:25 Zofran Inj IVP 4 mg Q4HR PRN Administration Nausea / Vomiting Oxycodone HCl 10 mg 07/18/17 21:00 07/19/17 04:00 Roxicodone PO 10 mg Q4HR MARCIANO Administration Simethicone 80 mg 07/18/17 20:00 07/18/17 20:56 Mylicon PO 80 mg 0900,1300,1800,2100 MARCIANO Administration Exam - Exam Vital Signs: Vital Signs (72 hours) 07/16/17 07/16/17 07/16/17 12:02 16:20 20:04 Temperature 98.1 F 98.6 F 98.2 F Heart Rate [ 87 75 79 Monitoring electrodes] Respiratory 18 16 16 Rate Blood Pressure 123/75 123/68 130/65 [Right Brachial artery] O2 Saturation 100 99 100 07/17/17 07/17/17 07/17/17 01:00 18:38 18:43 Temperature 98.1 F Heart Rate [ 78 Monitoring electrodes] Respiratory 16 Rate Blood Pressure 125/69 [Right Brachial artery] O2 Saturation 100 100 98 07/17/17 07/17/17 07/17/17 18:50 18:55 19:00 Temperature Heart Rate [ Monitoring electrodes] Respiratory Rate Blood Pressure [Right Brachial artery] O2 Saturation 98 98 98 07/17/17 07/17/17 07/17/17 19:05 19:10 19:15 Temperature Heart Rate [ 75 Monitoring electrodes] Respiratory Rate Blood Pressure 110/73 [Right Brachial artery] O2 Saturation 98 98 99 07/17/17 07/17/17 07/17/17 19:49 20:00 20:15 Temperature 99.0 F Heart Rate [ 74 Monitoring electrodes] Respiratory 16 Rate Blood Pressure 116/69 119/62 122/71 [Right Brachial artery] O2 Saturation 95 07/17/17 07/17/17 07/17/17 20:30 20:45 21:00 Temperature Heart Rate [ 80 Monitoring electrodes] Respiratory Rate Blood Pressure 111/61 119/97 H 109/63 [Right Brachial artery] O2 Saturation 97 07/17/17 07/18/17 07/18/17 22:59 00:31 03:39 Temperature 98.8 F 98.1 F 98.1 F Heart Rate [ 64 81 89 Monitoring electrodes] Respiratory 16 16 16 Rate Blood Pressure 110/64 112/69 108/57 L [Right Brachial artery] O2 Saturation 96 98 98 07/18/17 07/18/17 07/18/17 08:30 13:26 17:03 Temperature 98.6 F 98.8 F 97.7 F Heart Rate [ 93 76 79 Monitoring electrodes] Respiratory 16 12 17 Rate Blood Pressure 113/63 106/64 116/71 [Right Brachial artery] O2 Saturation 97 99 96 07/18/17 07/18/17 07/19/17 20:15 23:30 04:21 Temperature 97.9 F 98.8 F 97.7 F Heart Rate [ 81 88 88 Monitoring electrodes] Respiratory 16 18 20 Rate Blood Pressure 114/61 118/53 L 108/58 L [Right Brachial artery] O2 Saturation 97 98 95 07/19/17 09:04 Temperature 98.6 F Heart Rate [ 87 Monitoring electrodes] Respiratory 12 Rate Blood Pressure 124/70 [Right Brachial artery] O2 Saturation 94 General: Alert, Oriented x3 HEENT: Mucous membr. moist/pink Lungs: Clear to auscultation Cardiovascular: Regular rate, Normal S1, Normal S2 Abdomen: Normal bowel sounds, No tenderness, Other (Uterus 18-17 weeks size nontender firm) Extremities: No edema Skin: No rashes Neurological: Normal speech, Sensation intact Psych/Mental Status: Other (Mild anxiety) Assessment/Plan - Assessment/Plan Assessment: Patient recovering from section well, physiologically. First time mom requires more supportive care particularly after major surgery. Do not believe the patient to have baby blues or depressed. supportive Plan: * Continue supportive care and hospitalization. * Transfer care to Dr. Leos for probable discharge in the morning
[2017-07-19] MEDS: LABETALOL 100 MG TABLET PO SCH (10:07)
[2017-07-19] MEDS: SIMETHICONE CHEW 80 MG TABLET PO SCH ×3 (10:21→20:23)
[2017-07-19] MEDS: CELECOXIB 100 MG CAPSULE PO SCH ×2 (10:21→20:23)
[2017-07-20] MEDS: oxyCODONE 5 MG TABLET PO SCH ×3 (03:49→12:33)
[2017-07-20] MEDS: ACETAMINOPHEN 500 MG TABLET PO SCH ×2 (03:52→12:32)
--- NOTE | 2017-07-20 06:52 | DISCHARGE SUMMARY ---
DATE OF ADMISSION: 07/16/2017 DATE OF DISCHARGE: 07/20/2017 DIAGNOSES ON ADMISSION 1. A 27-year-old G1, P0 with a 40-0/7-week intrauterine . 2. Oligohydramnios. 3. Chronic hypertensive. 4. Morbid obesity. DIAGNOSES ON DISCHARGE 1. A 27-year-old G1, P1-0-0-1 status post primary delivery on 2016 secondary to failure to descend. 2. Normal recovery. BRIEF HISTORY: This is a patient of [facility] who was seen for routine visit on 07/15/2017. Bedside ultrasound revealed that she had oligohydramnios with amniotic fluid index of 4.61 cm. Baby was on the vertex , and the placenta was grade 3. The patient is also a chronic hypertensive on labetalol 100 mg 1 tab p.o. b.i.d. during this . The patient was admitted to the hospital and started on Cervidil for cervical ripening. She then progressed to 6-7 cm dilation. Despite adequate labor, she did not progress any further. She underwent a primary delivery with a failed vacuum attempt but successful forceps assist. She delivered a viable male infant named Pradeep with Apgars of 9 and 9 at 1 and 5 minutes, respectively. He weighed 3151 grams or 6 pounds 15 ounces. Estimated blood loss was 700 mL. Due to uterine atony, she was given Pitocin and Hemabate. There were no complications and she tolerated the procedure well. Her course has been unremarkable. She has been ambulating and tolerating a regular diet. The patient is urinating without difficulty, and her pain is controlled with oral medications. She will be discharged to home on , postoperative day #3. The patient has been written for prescriptions for Ridge, Colace and Motrin for home care. She is expected to see Dr. Taylor for a routine incision check in about 2 weeks and in 6 weeks for a routine examination. She is to call should she have any worsening fevers, chills, abdominal pain or vaginal bleeding. JOB #: [id number] EXT JOB #:[id number] [facility]ITAL[facility]aur[facility]
[2017-07-20] MEDS: DOCUSATE SODIUM 100 MG CAPSULE PO SCH (08:27)
[2017-07-20] MEDS: SIMETHICONE CHEW 80 MG TABLET PO SCH (09:35)
[2017-07-20] MEDS: CELECOXIB 100 MG CAPSULE PO SCH (09:35)
--- NOTE | 2017-07-20 10:13 | PROVIDER PROGRESS NOTE ---
Subjective - Prog Note Date Prog Note Date: 07/20/17 Prog Note Time: 10:08 - Subjective Pt reports feeling: Improved Subjective: Patient sitting in the chair, holding baby Werner on the Boppy. [id number] visiting with her. Desires to go home. States bleeding is improving. Pain controlled with po meds. Ambulating and tolerating regular diet. Urinating without difficulty. Objective - Vital Signs/Intake & Output Reviewed Vital Signs: Yes Vital Signs: Vital Signs x48h Temp Pulse Resp BP Pulse Ox 07/20/17 08:01 97.9 F 85 16 133/65 H 99 Intake & Output: Intake & Output 07/17/17 07/18/17 07/19/17 07/20/17 23:59 23:59 23:59 23:59 Intake Total 3687.5 3400 700 Output Total 751 701 Balance 2936.5 2699 700 - Objective General Appearance: positive: No acute distress Abdomen: positive: Non-tender (Incision is clean, dry and intact) Extremities: positive: Non-tender Neurologic/Psychiatric: positive: Oriented x3 - Lab Results Fish Bones: 07/18/17 05:18 07/15/17 20:55 Assessment/Plan - Problem List (1) delivery delivered Impression: 27 yo S/p primary CD 07/17/2017 Normal recovery Discharge to home Follow up with Dr. Taylor in 2 weeks Home Rx for motrin, colace and oxycodone Call for worsening fevers, chills, abdominal pain or vaginal bleeding Discharge Plan Disposition: 01 Home, Self Care Condition: Good Diet: Regular Activity Restrictions: Activity as Tolerated (No lifting greater than a gallon of milk) Shower Restrictions: No Driving Restrictions: Yes (No driving after taking oxycodone) Weight Bearing: Full Weight No Smoking: If you smoke, Please STOP! Call for help. Follow-up with: Linda Davis ARNP [Primary Care Provider] -
[2017-07-20] MEDS ORDERED: MEASLES,MUMPS & RUBELLA VACC 0.5 ML VIAL SUBQ ONE (13:00)
[2017-07-20 15:40] VITALS: BP 117/76
--- NOTE | 2017-07-20 18:53 | Labor Flowsheet ---
Labor Flowsheet Datetime Report Generated by CPN: 07/20/2017 18:52 Datetime: 07/17/2017 16:31 VITAL SIGNS NBP Sys/Irene/Mean (mmHg): 106 : 70 : 78 Pulse: 86 LaborFlag: Labor Datetime: 07/17/2017 16:30 UTERINE ACTIVITY Monitor Mode: External Frequency (min): irregular Quality: Moderate Duration (sec): unable to determine Pattern: Normal: <= 5 Contractions in 10 Minutes Resting Tone (Palpate): Relaxed ASSESSMENT A Monitor Mode: External US FHR Baseline Changes: No Baseline Change Variability: Moderate 6-25 bpm Accelerations: 15X15 Decelerations: None Category: Category I Datetime: 07/17/2017 15:30 Comments: Unable to assess presence or absence of decels Oxygen Method: Room Air Datetime: 07/17/2017 15:27 VAGINAL EXAM Dilatation (cm): 6.5 Effacement (%): 80 Station: -2 Exam by: Dr. Taylor Vaginal Bleeding: Normal Show Cervix, Consistency: Soft Cervix, Position: Posterior Vaginal Exam Comments: Pt elects for a csec. Refuses AROM Datetime: 07/17/2017 13:30 Monitor Interventions for FHR: Ultrasound Adjusted Datetime: 07/17/2017 13:29 Fern: Negative Membrane Comments: Dr. Suggs confirmed fern test is negative Datetime: 07/17/2017 13:00 FHR Baseline Rate : 130 Datetime: 07/17/2017 12:00 Contraction Comments: pt smiling and laughing Datetime: 07/17/2017 11:30 Monitor Interventions for UA: [place] Adjusted Datetime: 07/17/2017 11:25 Temperature (C): 36.7 Datetime: 07/17/2017 10:41 Membrane Status: Ruptured Membranes Rupture Method: Spontaneous Amniotic Fluid Color: Bloody Amniotic Fluid Amount: Small Amniotic Fluid Odor: Normal Nitrazine: Positive Datetime: 07/17/2017 10:09 Patient Care Comments: Urine Output 100ml Datetime: 07/17/2017 08:49 Provider Reviewed Strip: Yes COMMUNICATION Communication: RN at Bedside; Provider at Bedside Notification Reason: Status Update Datetime: 07/17/2017 08:32 Patient Position/Activity: Right Lateral Datetime: 07/17/2017 08:30 SpO2 (%): 96 Datetime: 07/17/2017 08:00 Respirations: 18 Pain Presence: None/Denies MATERNAL ASSESSMENT Level of Consciousness: Fully Conscious DTR's/Clonus: DTRs 2+ Headache: Denies Breath Sounds, Left: Clear and Equal Breath Sounds, Right: Clear and Equal Nausea/Vomiting: Denies RUQ Epigastric Pain: Denies Plan of Care: Plan of Care Discussed Labor/Induction: Labor Stages; Cervical Ripening Datetime: 07/17/2017 06:53 Provider Notified (Name): Dr. Taylor Communication Comments: MD informed that Cervidil was pulled at 0635 and that pt was having variabl es relieved by turning - no new orders Datetime: 07/17/2017 06:45 Actions for Decelerations: Side to Side; IV Bolus Datetime: 07/17/2017 06:39 PATIENT CARE IV/Blood Work: IV Bolus Started Datetime: 07/17/2017 06:33 MEDICATIONS Medication Comments: cervidil pulled Datetime: 07/17/2017 06:24 I/O Interventions: Osuna Cath Inserted Datetime: 07/17/2017 06:00 PAIN Pain Scale: 0 Anesthesia Level Check: T7 TEACHING Instructional Method: Verbal Unit Routine: Unit Personnel Datetime: 07/17/2017 05:20 Epidural Procedure: Test Dose Datetime: 07/17/2017 05:00 PROCEDURE TIME OUT Procedure Verify: Correct Patient Identity; Correct Side and Site are Marked; Accurate Procedure Co nsent Form; Agreement on Procedure to be Done; Correct Patient Position; Relevant Images and Results are Properly Labeled and Displayed; Addressed Need to Administer Antibiotics or Fluids for Irrigation ; Safety Precautions Based on Patient History or Medication Use ANESTHESIA Anesthesia Plans: Epidural Epidural Positioning: Sitting Pain Management: Epidural Datetime: 07/17/2017 04:00 Medications: IV Narcotics; Cervical Ripening Datetime: 07/17/2017 03:00 Pain Type: Contraction Pain Location: Abdomen; Back Pain Assessment Comments: pt refusing pain medication at this time Datetime: 07/16/2017 20:38 Stage of : Labor
== END 2017-07-20 16:05 | disposition home or self-care (01) | DRG 765 ==
LOC: WFO 17:12 → FBP 17:14 → WFO 18:39 → FBP 18:40 → OBSVTOIN 07-16 20:37 → FBP 07-17 19:34
PROVIDERS: ADMIT Obstetrics & Gynecology; ATTEND Obstetrics & Gynecology
PROC: 10D00Z1 Extraction of Products of Conception, Low, Open Approach (ICD-10-PCS; principal; 2017-07-17 17:00)
DX: O41.03X0 Oligohydramnios, third trimester, not applicable or unspecified (principal); O10.92 Unspecified pre-existing hypertension complicating childbirth; Z68.41 Body mass index [BMI] 40.0-44.9, adult; O99.214 Obesity complicating childbirth; E66.01 Morbid (severe) obesity due to excess calories; O24.429 Gestational diabetes mellitus in childbirth, unspecified control; O64.8XX0 Obstructed labor due to other malposition and malpresentation, not applicable or unspecified; Z3A.10 10 weeks gestation of pregnancy; Z37.0 Single live birth
CPT/HCPCS: 36415; 82803; 82947; 83036; 85025; 99213

== ENCOUNTER 2018-08-02 19:38 | Emergency (ER) | payer MEDICAID ==
[2018-08-02 19:46] VITALS: BP 134/77
[2018-08-02 20:42] LABS: BILIRUBIN,URINE NEGATIVE (NEGATIVE); GLUCOSE, URINE (UA) NEGATIVE (NEGATIVE); KETONES,URINE (UA) NEGATIVE (NEGATIVE); LEUKOCYTE ESTERASE, URINE NEGATIVE (NEGATIVE); NITRITE,URINE NEGATIVE (NEGATIVE); OCCULT BLOOD,URINE NEGATIVE (NEGATIVE); PH,URINE 6.5 PH (5.0-7.5); PROTEIN,URINE NEGATIVE (NEGATIVE); UROBILINOGEN,URINE 0.2 (NORMAL) E.U./dL (NORMAL)
[2018-08-02 20:43] LABS: CLARITY,URINE CLEAR (CLEAR); HCG UR QUAL NEGATIVE
[2018-08-02] MEDS ORDERED: CYCLOBENZAPRINE 10 MG TABLET PO STA (20:51)
[2018-08-02] MEDS ORDERED: HYDROcod/ACET 5/325 Prepack 4 PO STA (20:51)
[2018-08-02] MEDS ORDERED: predniSONE 20 MG TABLET PO STA (20:51)
--- NOTE | 2018-08-02 20:53 | ED Physician Documentation ---
PD HPI BACK PAIN - Stated complaint Stated Complaint: BACK PX - Chief complaint Chief Complaint: Back Pain - History obtained from History obtained from: Patient - History of Present Illness Timing - onset: Last night (She was diagnosed with a herniated disc in 2011, she has chronic daily back pain but it was worse since last night more focal in the right lumbar area without radiation to the buttock, groin, or leg. She denies weakness, numbness, tingling, saddle anesthesia, or fevers or urinary complaints. There is a small possibility of . 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 Home Medications: Ambulatory Orders Medication Instructions Recorded Confirmed Labetalol HCl 100 mg PO BID 07/16/17 07/16/17 Vits96/Iron Fum/Folic 1 each PO DAILY 07/16/17 07/16/17 [ Tablet] Cyclobenzaprine [Flexeril] 10 mg PO TID PRN #20 tablet 08/02/18 Hydrocodone/Acetaminophen 1 - 2 each PO Q6H PRN #14 tablet 08/02/18 [Hydrocodon-Acetaminophen 5-325] predniSONE [Prednisone] 60 mg PO DAILY 5 Days #15 tablet 08/02/18 - Allergies Allergies/Adverse Reactions: Allergies Allergy/AdvReac Type Severity Reaction Status Date / Time No Known Drug Allergies Allergy Verified 08/02/18 19:45 - Social History Does the pt smoke?: No Smoking Status: Never smoker Does the pt drink ETOH?: No Does the pt have substance abuse?: No - Immunizations Immunizations are current?: Yes - POLST Patient has POLST: No PD ED PE NORMAL - Vitals Vital signs reviewed: Yes - General General: Alert and oriented X 3, No acute distress - Abdomen Abdomen: Soft, Non tender - Back Back: No spinal TTP, Other (Tender to the right paralumbar musculature) - Extremities Extremities: Other (The patient has equal and normal Achilles and patellar refle xes bilaterally. Normal sensation in all areas of the legs. Patient denies saddle anesthesia. Normal strength in flexion-extension at the ankles, knees, and flexion of the hips.) Results - Vitals Vitals: Vital Signs - 24 hr 08/02/18 19:42 Temperature 36.8 C Heart Rate 96 Respiratory 20 Rate Blood Pressure 134/77 H O2 Saturation 100 Oxygen O2 Source Room air - Labs Labs: Laboratory Tests 08/02/18 20:31 Urine Color YELLOW Urine Clarity CLEAR Urine pH 6.5 Ur Specific [place] 1.010 Urine Protein NEGATIVE Urine Glucose (UA) NEGATIVE Urine Ketones NEGATIVE Urine Occult Blood NEGATIVE Urine Nitrite NEGATIVE Urine Bilirubin NEGATIVE Urine Urobilinogen 0.2 (NORMAL) Ur Leukocyte Esterase NEGATIVE Ur Microscopic Review NOT INDICATED Urine Culture Comments NOT INDICATED Urine HCG, Qual NEGATIVE PD MEDICAL DECISION MAKING - ED course ED course: This patient has seemingly uncomplicated musculoskeletal back pain. The patient has no "red flags." Specifically denies IV drug use, fevers, incontinence, saddle anesthesia. Spinal epidural abscess was considered, given that the patient has no fever, is not diabetic, has no spinal tenderness, does not use IV drugs, and has no bilateral neurologic symptoms, the diagnosis of spinal epidural abscess is considered exceedingly unlikely. Departure - Departure Disposition: 01 Home, Self Care Clinical Impression: Back pain Qualifiers: Back pain location: low back pain Chronicity: chronic Back pain laterality: right Sciatica presence: without sciatica Qualified Code(s): M54.5 - Low back pain; G89.29 - Other chronic pain Condition: Good Record reviewed to determine appropriate education?: Yes Instructions: ED Neck Back Pain General Prescriptions: Cyclobenzaprine [Flexeril] 10 mg PO TID PRN #20 tablet PRN Reason: Spasms Hydrocodone/Acetaminophen [Hydrocodon-Acetaminophen 5-325] 1 - 2 each PO Q6H PRN #14 tablet PRN Reason: pain predniSONE [Prednisone] 60 mg PO DAILY 5 Days #15 tablet Comments: Call your doctor to arrange a follow-up appointment, make the next available appointment. In the interim, return anytime if worse or if new symptoms develop. Do not drink or drive while taking narcotic pain medication. Note that many narcotic pain relievers also contain Tylenol/acetaminophen. Please ensure that your total dose of acetaminophen from all sources does not exceed 3 g (3000 mg) per day. You may get constipated while on this medication. Take a stool softener such as Colace twice a day while you are on it. Also add an [id number] laxative such as senna or MiraLAX on any day that you do not have a bowel movement. If you received a narcotic pain medication or sedative while in the emergency department, do not drive for the next 24 hours.
== END 2018-08-02 21:07 | disposition home or self-care (01) ==
LOC: ED 19:38
DX: M54.5 Low back pain (principal); G89.29 Other chronic pain; I10 Essential (primary) hypertension
CPT/HCPCS: 81003; 81025; 99283; A9270; J7512; 81001; 87086

== ENCOUNTER 2018-10-09 13:04 | Outpatient (CLI) | payer MEDICAID ==
--- NOTE | 2018-10-12 06:43 | Ultrasound Report ---
Reason: POSITIVE PREGNACY TEST Procedure Date: 10/09/2018 Accession Number: [id number] / [id number] Procedure: US - OB First Trimester CPT Code: FULL RESULT: EXAM: FIRST TRIMESTER OBSTETRIC ULTRASOUND (Less than 11 weeks) EXAM DATE: 10/09/2018 02:13 PM. CLINICAL HISTORY: Positive test. LMP: 08/13/2018. COMPARISONS: None. TECHNIQUE: Transabdominal and transvaginal ultrasound examination with static image documentation. CLINICAL DATES: EGA 9 weeks 1 day with BETTYE 05/13/2019 based on LMP. ASSESSMENT: Gestational Sac: Single intrauterine. Mean gestational sac diameter: 27.6 mm = 7 weeks 4 days. Embryo: CRL (crown-rump length) 18.9 mm = 8 weeks 3 days. Cardiac activity: 171 beats per minute. Yolk sac: 4.7 mm. Amniotic fluid: Not accurately assessed at this gestational age. Early placenta: Not visible at this gestational age. Other: No perigestational fluid collection demonstrated. MATERNAL STRUCTURES: Uterus: Anteverted. Unremarkable. Cervix: Closed. Right Ovary/Adnexa: The ovary measures 3.0 x 1.2 x 2.4 cm, volume 4.5 cc. Unremarkable. Left Ovary/Adnexa: The ovary measures 4.1 x 2.9 x 2.7 cm, volume 16.9 cc. Unremarkable. Free Fluid: None. Other: None. IMPRESSION: 1. Single viable intrauterine at EGA 8 weeks 3 days with BETTYE 05/18/2019 based on crown-rump length, which is concordant with clinical dates. 2. Assigned dating is BETTYE 8 weeks 3 days based on current ultrasound. RADIA
--- NOTE | 2018-10-12 06:43 | Ultrasound Report ---
Reason: POSITIVE TEST Procedure Date: 10/09/2018 Accession Number: [id number] / [id number] Procedure: US - OB Transvaginal CPT Code: FULL RESULT: EXAM: FIRST TRIMESTER OBSTETRIC ULTRASOUND (Less than 11 weeks) EXAM DATE: 10/09/2018 02:13 PM. CLINICAL HISTORY: Positive test. LMP: 08/13/2018. COMPARISONS: None. TECHNIQUE: Transabdominal and transvaginal ultrasound examination with static image documentation. CLINICAL DATES: EGA 9 weeks 1 day with BETTYE 05/13/2019 based on LMP. ASSESSMENT: Gestational Sac: Single intrauterine. Mean gestational sac diameter: 27.6 mm = 7 weeks 4 days. Embryo: CRL (crown-rump length) 18.9 mm = 8 weeks 3 days. Cardiac activity: 171 beats per minute. Yolk sac: 4.7 mm. Amniotic fluid: Not accurately assessed at this gestational age. Early placenta: Not visible at this gestational age. Other: No perigestational fluid collection demonstrated. MATERNAL STRUCTURES: Uterus: Anteverted. Unremarkable. Cervix: Closed. Right Ovary/Adnexa: The ovary measures 3.0 x 1.2 x 2.4 cm, volume 4.5 cc. Unremarkable. Left Ovary/Adnexa: The ovary measures 4.1 x 2.9 x 2.7 cm, volume 16.9 cc. Unremarkable. Free Fluid: None. Other: None. IMPRESSION: 1. Single viable intrauterine at EGA 8 weeks 3 days with BETTYE 05/18/2019 based on crown-rump length, which is concordant with clinical dates. 2. Assigned dating is BETTYE 8 weeks 3 days based on current ultrasound. RADIA
== END 2018-10-09 13:05 | disposition home or self-care (01) ==
LOC: DI 13:04
PROVIDERS: ATTEND Nurse Practitioner Obstetrics & Gynecology
DX: Z32.01 Encounter for pregnancy test, result positive (principal); Z3A.08 8 weeks gestation of pregnancy
CPT/HCPCS: 76801; 76817

== ENCOUNTER 2018-10-28 08:00 | Outpatient (CLI) | payer MEDICAID ==
[2018-10-28 18:59] LABS: MUDS CUTOFF CONCENTRATIONS CUTOFF CONC BELOW:
[2018-10-28 19:42] LABS: AMPHETAMINE SCREEN,URINE NEGATIVE (NEGATIVE); BENZODIAZEPINES SCREEN, URINE NEGATIVE (NEGATIVE); COCAINE SCREEN URINE NEGATIVE (NEGATIVE); METHADONE SCREEN, URINE NEGATIVE (NEGATIVE); METHAMPHETAMINES SCREEN, URINE NEGATIVE (NEGATIVE); OPIATE SCREEN, URINE NEGATIVE (NEGATIVE); OXYCODONE SCREEN, URINE NEGATIVE (NEGATIVE); PROPOXYPHENE SCREEN, URINE NEGATIVE (NEGATIVE); TRICYCLIC ANTIDEPRESSANT,URINE NEGATIVE (NEGATIVE)
== END 2018-10-28 23:59 | disposition home or self-care (01) ==
LOC: LAB.R 08:00
PROVIDERS: ATTEND Nurse Practitioner Obstetrics & Gynecology
DX: Z36.89 Encounter for other specified antenatal screening (principal)
CPT/HCPCS: 80306

== ENCOUNTER 2018-11-11 11:16 | Outpatient (CLI) | payer MEDICAID ==
[2018-11-11 11:55] LABS: BASOPHILS % (AUTO) 0.3 %; EOSINOPHILS % (AUTO) 0.3 %; HGB - HEMOGLOBIN 12.4 g/dL (12.0-16.0); LYMPHOCYTES # (AUTO) 1.9 10^3/uL (1.5-3.5); LYMPHOCYTES % (AUTO) 20.3 %; MEAN CORPUSCULAR HEMOGLOBIN 24.9 pg (27.0-31.0); MEAN CORPUSCULAR HGB CONC 33.6 g/dL (32.0-36.0); MEAN CORPUSCULAR VOLUME 74.2 fL (81.0-99.0); MEAN PLATELET VOLUME 8.3 fL (7.9-10.8); MONOCYTES # (AUTO) 0.4 10^3/uL (0.0-1.0); MONOCYTES % (AUTO) 4.1 %; PLT - PLATELET COUNT 233 10^3/uL (130-450); RED BLOOD COUNT 4.97 10^6/uL (4.20-5.40); RED CELL DISTRIBUTION WIDTH 16.8 % (12.0-15.0); WHITE BLOOD COUNT 9.4 x10^3/uL (4.8-10.8)
[2018-11-11 11:56] LABS: BILIRUBIN,URINE NEGATIVE (NEGATIVE); GLUCOSE, URINE (UA) NEGATIVE (NEGATIVE); KETONES,URINE (UA) NEGATIVE (NEGATIVE); LEUKOCYTE ESTERASE, URINE NEGATIVE (NEGATIVE); NITRITE,URINE NEGATIVE (NEGATIVE); OCCULT BLOOD,URINE NEGATIVE (NEGATIVE); PH,URINE 6.5 PH (5.0-7.5); PROTEIN,URINE NEGATIVE (NEGATIVE); UROBILINOGEN,URINE 0.2 (NORMAL) E.U./dL (NORMAL)
[2018-11-11 11:57] LABS: CLARITY,URINE CLEAR (CLEAR)
[2018-11-11 12:05] LABS: CREATININE 0.6 mg/dL (0.4-1.0); URIC ACID 3.2 mg/dL (2.6-7.2)
[2018-11-11 12:42] LABS: BACTERIA,URINE Rare /HPF (None Seen); MUCUS,URINE Few Strands; RBC,URINE 0-5 /HPF (0-5); SQUAMOUS EPITHELIAL CELL,UR FEW Squamous (<= Few)
[2018-11-12 13:12] LABS: HEPATITIS B SURFACE ANTIGEN NON-REACTIVE (NON-REACTIVE)
[2018-11-12 13:21] LABS: HIV AG/AB 4TH GEN NON-REACTIVE (NON-REACTIVE)
[2018-11-12 14:17] LABS: HEPATITIS C ANTIBODY NON-REACTIVE (NON-REACTIVE)
== END 2018-11-11 11:17 | disposition home or self-care (01) ==
LOC: LAB 11:16
PROVIDERS: ATTEND Nurse Practitioner Obstetrics & Gynecology
DX: Z36.89 Encounter for other specified antenatal screening (principal); O16.9 Unspecified maternal hypertension, unspecified trimester; O99.210 Obesity complicating pregnancy, unspecified trimester; Z86.32 Personal history of gestational diabetes
CPT/HCPCS: 36415; 81001; 81599; 82565; 82951; 83615; 84450; 84550; 85025; 86592; 86762; 86803; 86850; 86900; 86901; 87086; 87340; 87389

== ENCOUNTER 2018-11-18 17:28 | Emergency (ER) | payer MEDICAID ==
--- NOTE | 2018-11-18 19:57 | ED Physician Documentation ---
History of Present Illness - Stated complaint Stated Complaint: 14WKS FEVER/CHILLS - Chief complaint Chief Complaint: Heent - History obtained from History obtained from: Patient, Family - History of Present Illness Timing: How many days ago (2) Pain level max: 0 Pain level now: 0 Improved by: rest Worsened by: exertion - Additonal information Additional information: 28-year-old female, currently 14 weeks presents the emergency department with fevers, coughing, rhinorrhea, congestion and body aches. Her child is sick with same. started to get sick yesterday. He tested positive for the flu today. 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 - Present Medications Home Medications: Ambulatory Orders Medication Instructions Recorded Confirmed Labetalol HCl 100 mg PO BID 07/16/17 07/16/17 Vits96/Iron Fum/Folic 1 each PO DAILY 07/16/17 07/16/17 [ Tablet] Cyclobenzaprine [Flexeril] 10 mg PO TID PRN #20 tablet 08/02/18 Hydrocodone/Acetaminophen 1 - 2 each PO Q6H PRN #14 tablet 08/02/18 [Hydrocodon-Acetaminophen 5-325] predniSONE [Prednisone] 60 mg PO DAILY 5 Days #15 tablet 08/02/18 Ondansetron Odt [Zofran] 4 mg TL Q6H PRN #10 tablet 11/18/18 - Allergies Allergies/Adverse Reactions: Allergies Allergy/AdvReac Type Severity Reaction Status Date / Time No Known Drug Allergies Allergy Verified 08/02/18 19:45 - Social History Does the pt smoke?: No Smoking Status: Never smoker Does the pt drink ETOH?: No Does the pt have substance abuse?: No - Immunizations Immunizations are current?: Yes - POLST Patient has POLST: No PD ED PE NORMAL - Vitals Vital signs reviewed: Yes - General General: Alert and oriented X 3, No acute distress - HEENT HEENT: PERRL, Ears normal, Moist mucous membranes, Pharynx benign - Neck Neck: Supple, no meningeal sign, No adenopathy - Cardiac Cardiac: RRR, Strong equal pulses - Respiratory Respiratory: No respiratory distress, Clear bilaterally - Abdomen Abdomen: Soft, Non tender, Non distended - Back Back: No CVA TTP - Derm Derm: Warm and dry, No rash - Extremities Extremities: No edema - Neuro Neuro: Alert and oriented X 3 - Psych Psych: Normal mood, Normal affect Results - Vitals Vitals: Vital Signs - 24 hr 11/18/18 11/18/18 17:33 20:01 Temperature 37.3 C 37.8 C H Heart Rate 121 H 130 H Respiratory 18 14 Rate Blood Pressure 121/78 133/82 H O2 Saturation 98 99 Oxygen O2 Source Room air - Labs Labs: Laboratory Tests 11/18/18 17:45 Influenza A (Rapid) Negative Influenza B (Rapid) Negative PD MEDICAL DECISION MAKING - ED course Complexity details: reviewed results, considered differential, d/w patient ED course: 28-year-old female, currently 14 weeks with what appears to be influenza A. tested positive today. We discussed risks and benefits of Tamiflu. She declines this at this time. We will continue supportive care and follow-up closely with her doctor. She is very well-appearing, nontoxic. Patient counseled regarding signs and symptoms for which I believe and urgent re-evaluation would be necessary. Patient with good understanding of and agreement to plan and is comfortable going home at this time This document was made in part using voice recognition software. While efforts are made to proofread this document, sound alike and grammatical errors may occur. Departure - Departure Disposition: 01 Home, Self Care Clinical Impression: Influenza A Qualifiers: Weeks of gestation: 14 weeks Qualified Code(s): Z3A.14 - 14 weeks gestation of Condition: Good Instructions: ED Flu Follow-Up: Linda Davis ARNP [Primary Care Provider] - Within 1 week Prescriptions: Ondansetron Odt [Zofran] 4 mg TL Q6H PRN #10 tablet PRN Reason: Nausea / Vomiting Comments: Drink plenty of fluids and rest. Return if you worsen. Follow-up with your doctor for further evaluation and care. Discharge Date/Time: 11/18/18 20:04
[2018-11-18 20:01] VITALS: BP 133/82
== END 2018-11-18 20:04 | disposition home or self-care (01) ==
LOC: ED 17:28
DX: O26.892 Other specified pregnancy related conditions, second trimester (principal); J10.1 Influenza due to other identified influenza virus with other respiratory manifestations; Z3A.14 14 weeks gestation of pregnancy; I10 Essential (primary) hypertension
CPT/HCPCS: 87275; 87276; 99283

== ENCOUNTER 2019-10-27 17:45 | Emergency (ER) | payer MEDICAID, OTHER ==
[2019-10-27 19:01] LABS: BASOPHILS % (AUTO) 0.5 %; EOSINOPHILS # (AUTO) 0.1 10^3/uL (0.0-0.7); EOSINOPHILS % (AUTO) 0.9 %; HGB - HEMOGLOBIN 12.5 g/dL (12.0-16.0); LYMPHOCYTES # (AUTO) 2.1 10^3/uL (1.5-3.5); LYMPHOCYTES % (AUTO) 26.4 %; MEAN CORPUSCULAR HEMOGLOBIN 23.2 pg (27.0-31.0); MEAN CORPUSCULAR HGB CONC 30.8 g/dL (32.0-36.0); MEAN CORPUSCULAR VOLUME 75.5 fL (81.0-99.0); MEAN PLATELET VOLUME 10.2 fL (7.9-10.8); MONOCYTES # (AUTO) 0.4 10^3/uL (0.0-1.0); MONOCYTES % (AUTO) 4.7 %; NEUTROPHILS # (AUTO) 5.2 10^3/uL (1.5-6.6); NEUTROPHILS % (AUTO) 67.1 %; PLT - PLATELET COUNT 296 10^3/uL (130-450); RED BLOOD COUNT 5.38 10^6/uL (4.20-5.40); RED CELL DISTRIBUTION WIDTH 14.6 % (12.0-15.0); WHITE BLOOD COUNT 7.8 x10^3/uL (4.8-10.8)
[2019-10-27 19:17] LABS: ALBUMIN/GLOBULIN RATIO 1.1 (1.0-2.2); BILIRUBIN,TOTAL 0.4 mg/dL (0.2-1.0); CALCIUM 9.1 mg/dL (8.5-10.3); CREATININE 0.7 mg/dL (0.4-1.0); TOTAL PROTEIN 7.6 g/dL (6.7-8.2)
--- NOTE | 2019-10-27 20:00 | ED Physician Documentation ---
PD HPI ABD PAIN - Stated complaint Stated Complaint: ABD PAIN, LT SIDE FACIAL PAIN - Chief complaint Chief Complaint: Abd Pain - History obtained from History obtained from: Patient, Family - History of Present Illness Pain level max: 5 Pain level now: 0 Quality: Aching, Pain Location: RUQ, LUQ Radiation: No: Chest, , Lower back, Left flank, Left shoulder, Right flank, Right shoulder, Upper back Improved by: Other (nothing) Worsened by: Other (nothing) Associated symptoms: No: Fever, Nausea, Vomiting, Hematemesis, Diarrhea, Constipation, Melena, Hematochezia, Dysuria, Hematuria, Chest pain, Dizzy, Near syncope / syncope, Loss of appetite, Weight loss, Vaginal bleeding Similar symptoms before: Has not had sx before Recently seen: Not recently seen - Additional information Additional information: Patient states that intermittently for about 2 weeks he has had right upper quadrant pain, normally lasts for a few minutes at a time. Today she also developed left upper quadrant pain. This is since resolved as well. She also states that for the past 5 months she has had left-sided facial pain. Worse with eating and drinking. Worse with chewing. 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 10/27/19 - Allergies Allergies/Adverse Reactions: Allergies Allergy/AdvReac Type Severity Reaction Status Date / Time No Known Drug Allergies Allergy Verified 10/27/19 17:55 - Social History Does the pt smoke?: No Smoking Status: Never smoker Does the pt drink ETOH?: No Does the pt have substance abuse?: No - Immunizations Immunizations are current?: Yes - POLST Patient has POLST: No PD ED PE NORMAL - Vitals Vital signs reviewed: Yes - General General: Alert and oriented X 3, No acute distress, Well developed/nourished - HEENT HEENT: Ears normal, Moist mucous membranes, Pharynx benign, Other (TTP over the L TMJ, no swelling, no gland swelling. ) - Neck Neck: Supple, no meningeal sign - Cardiac Cardiac: RRR, Strong equal pulses - Respiratory Respiratory: No respiratory distress, Clear bilaterally - Abdomen Abdomen: Soft, Non tender, Non distended - Derm Derm: Warm and dry - Neuro Neuro: Alert and oriented X 3 - Psych Psych: Normal mood, Normal affect Results - Vitals Vitals: Vital Signs - 24 hr 10/27/19 10/27/19 10/27/19 17:55 17:59 21:10 Temperature 36.7 C 36.5 C Heart Rate 89 84 82 Respiratory 14 14 14 Rate Blood Pressure 141/83 H 140/84 H 136/80 H O2 Saturation 100 100 100 Oxygen O2 Source Room air - Labs Labs: Laboratory Tests 10/27/19 10/27/19 10/27/19 18:45 18:45 20:32 WBC 7.8 RBC 5.38 Hgb 12.5 Hct 40.6 MCV 75.5 L MCH 23.2 L MCHC 30.8 L RDW 14.6 Plt Count 296 MPV 10.2 Neut # (Auto) 5.2 Lymph # (Auto) 2.1 Emmons # (Auto) 0.4 Eos # (Auto) 0.1 Baso # (Auto) 0.0 Absolute Nucleated RBC 0.00 Nucleated RBC % 0.0 Sodium 138 Potassium 3.8 Chloride 103 Carbon Dioxide 26 Anion Gap 9.0 BUN 12 Creatinine 0.7 Estimated GFR (MDRD) 99 Glucose 120 H Calcium 9.1 Total Bilirubin 0.4 AST 21 ALT 23 Alkaline Phosphatase 53 Total Protein 7.6 Albumin 4.0 Globulin 3.6 Albumin/Globulin Ratio 1.1 Lipase 40 Urine Color YELLOW Urine Clarity CLEAR Urine pH 7.0 Ur Specific [place] 1.015 Urine Protein NEGATIVE Urine Glucose (UA) NEGATIVE Urine Ketones NEGATIVE Urine Occult Blood NEGATIVE Urine Nitrite NEGATIVE Urine Bilirubin NEGATIVE Urine Urobilinogen 0.2 (NORMAL) Ur Leukocyte Esterase NEGATIVE Ur Microscopic Review NOT INDICATED Urine Culture Comments NOT INDICATED Urine HCG, Qual 10/27/19 20:32 WBC RBC Hgb Hct MCV MCH MCHC RDW Plt Count MPV Neut # (Auto) Lymph # (Auto) [place] # (Auto) Eos # (Auto) Baso # (Auto) Absolute Nucleated RBC Nucleated RBC % Sodium Potassium Chloride Carbon Dioxide Anion Gap BUN Creatinine Estimated GFR (MDRD) Glucose Calcium Total Bilirubin AST ALT Alkaline Phosphatase Total Protein Albumin Globulin Albumin/Globulin Ratio Lipase Urine Color Urine Clarity Urine pH Ur Specific [place] 1.015 Urine Protein Urine Glucose (UA) Urine Ketones Urine Occult Blood Urine Nitrite Urine Bilirubin Urine Urobilinogen Ur Leukocyte Esterase Ur Microscopic Review Urine Culture Comments Urine HCG, Qual NEGATIVE - Rads (name of study) RUQ US Radiology: Prelim report reviewed, EMP read contemporaneously, See rad report (Hepatic steatosis. Contracted gallbladder. No other ) PD MEDICAL DECISION MAKING - ED course Complexity details: reviewed results, re-evaluated patient, considered differential, d/w patient, d/w family ED course: Patient with abdominal pain of unclear etiology. No acute findings on laboratory testing or ultrasound. She appears to have TMJ as well. Recommend a nightguard for her. She does grind her teeth. Recommend that she follow-up with her doctor for further care and testing. Patient is well-appearing, nontoxic. Abdomen is soft, nontender nondistended on serial exam. Tolerating p.o. without difficulty. Patient counseled regarding signs and symptoms for which I believe and urgent re-evaluation would be necessary. Patient with good understanding of and agreement to plan and is comfortable going home at this time This document was made in part using voice recognition software. While efforts are made to proofread this document, sound alike and grammatical errors may occur. Departure - Departure Disposition: 01 Home, Self Care Clinical Impression: Abdominal pain Qualifiers: Abdominal location: epigastric Qualified Code(s): R10.13 - Epigastric pain TMJ arthralgia Qualifiers: Laterality: left Qualified Code(s): M26.622 - Arthralgia of left temporomandibular joint Condition: Good Instructions: ED Abdominal Pain Unkn Cause, ED TMJ Syndrome Follow-Up: Linda Davis ARNP [Primary Care Provider] - Within 1 week Prescriptions: Omeprazole 20 mg PO DAILY #30 capsule. Comments: Follow-up with your doctor for further care. They may want to perform an endoscopy to evaluate your stomach for possible ulcers. You also would benefit from sleeping with a mouthguard as this will likely help with the pain from your TMJ. These can be obtained [id number] at stores such as [employer]. Return if you worsen Discharge Date/Time: 10/27/19 21:10
--- NOTE | 2019-10-27 20:13 | Ultrasound Report ---
Reason: RUQ abd pain Procedure Date: 10/27/2019 Accession Number: [id number] / [id number] Procedure: US - Abdomen Limited CPT Code: Final Report FULL RESULT: EXAM: ABDOMEN ULTRASOUND LIMITED, RUQ EXAM DATE: 10/27/2019 08:04 PM. CLINICAL HISTORY: RUQ abd pain. COMPARISON: None. TECHNIQUE: Real-time scanning was performed with static images obtained. FINDINGS: Liver: Heterogeneous hepatic parenchyma, suggestive of steatosis. 16 cm. Main portal vein flow: Hepatopetal. Gallbladder: contracted. However, unremarkable to the extent seen. Biliary System: CBD measures 4 mm. No intrahepatic or extrahepatic ductal dilatation. Other: Normal right kidney.No free fluid. IMPRESSION: Hepatic steatosis. Contracted gallbladder. No other significant abnormality. RADIA
[2019-10-27 20:39] LABS: BILIRUBIN,URINE NEGATIVE (NEGATIVE); GLUCOSE, URINE (UA) NEGATIVE (NEGATIVE); KETONES,URINE (UA) NEGATIVE (NEGATIVE); LEUKOCYTE ESTERASE, URINE NEGATIVE (NEGATIVE); NITRITE,URINE NEGATIVE (NEGATIVE); OCCULT BLOOD,URINE NEGATIVE (NEGATIVE); PROTEIN,URINE NEGATIVE (NEGATIVE); UROBILINOGEN,URINE 0.2 (NORMAL) E.U./dL (NORMAL)
[2019-10-27 20:41] LABS: CLARITY,URINE CLEAR (CLEAR); HCG UR QUAL NEGATIVE
[2019-10-27 21:11] VITALS: BP 136/80
== END 2019-10-27 21:10 | disposition home or self-care (01) ==
LOC: ED 17:45
DX: R10.13 Epigastric pain (principal); M26.622 Arthralgia of left temporomandibular joint; K76.0 Fatty (change of) liver, not elsewhere classified; I10 Essential (primary) hypertension
CPT/HCPCS: 36415; 76705; 80053; 81001; 81003; 81025; 83690; 85025; 87086; 99284

== ENCOUNTER 2020-03-08 14:19 | Outpatient (CLI) | payer MEDICAID, OTHER ==
[2020-03-08 18:32] LABS: BASOPHILS # (AUTO) 0.1 10^3/uL (0.0-0.1); BASOPHILS % (AUTO) 0.7 %; EOSINOPHILS # (AUTO) 0.1 10^3/uL (0.0-0.7); EOSINOPHILS % (AUTO) 0.8 %; HGB - HEMOGLOBIN 12.5 g/dL (12.0-16.0); LYMPHOCYTES # (AUTO) 2.3 10^3/uL (1.5-3.5); MEAN CORPUSCULAR HEMOGLOBIN 23.4 pg (27.0-31.0); MEAN CORPUSCULAR HGB CONC 30.6 g/dL (32.0-36.0); MEAN CORPUSCULAR VOLUME 76.6 fL (81.0-99.0); MEAN PLATELET VOLUME 10.5 fL (7.9-10.8); MONOCYTES # (AUTO) 0.4 10^3/uL (0.0-1.0); MONOCYTES % (AUTO) 4.8 %; NEUTROPHILS # (AUTO) 4.7 10^3/uL (1.5-6.6); NEUTROPHILS % (AUTO) 62.3 %; PLT - PLATELET COUNT 329 10^3/uL (130-450); RED BLOOD COUNT 5.34 10^6/uL (4.20-5.40); RED CELL DISTRIBUTION WIDTH 15.6 % (12.0-15.0); WHITE BLOOD COUNT 7.5 x10^3/uL (4.8-10.8)
[2020-03-08 18:42] LABS: ALBUMIN 4.4 g/dL (3.2-5.5); ALBUMIN/GLOBULIN RATIO 1.2 (1.0-2.2); ALKALINE PHOSPHATASE 58 IU/L (42-121); ALT ALANINE AMINOTRANSFERASE 21 IU/L (10-60); AST ASPARTATE AMINOTRANSFERASE 16 IU/L (10-42); BILIRUBIN,TOTAL 0.5 mg/dL (0.2-1.0); BUN - BLOOD UREA NITROGEN 14 mg/dL (6-20); CALCIUM 9.1 mg/dL (8.5-10.3); CARBON DIOXIDE - CO2 26 mmol/L (21-32); CHLORIDE 102 mmol/L (101-111); CHOL/HDL RATIO 3.6 (<4.4); CHOLESTEROL 153 mg/dL; CREATININE 0.6 mg/dL (0.4-1.0); GLUCOSE 85 mg/dL (70-100); HDL CHOLESTEROL 42 mg/dL; LDL CHOLESTEROL,CALCULATED 88 mg/dL; LDL/HDL RATIO 2.1 (<4.4); SODIUM 136 mmol/L (135-145); TOTAL PROTEIN 8.2 g/dL (6.7-8.2); VLDL CHOLESTEROL 23 mg/dL
[2020-03-08 18:58] LABS: HB2 TOTAL 13.2 g/dL; HEMOGLOBIN A1C 0.54 g/dL; HEMOGLOBIN A1C % 5.9 % (4.6-6.2)
[2020-03-08 20:00] LABS: HCG,QUALITATIVE BLOOD NEGATIVE
== END 2020-03-08 23:59 | disposition home or self-care (01) ==
LOC: LAB.WCP 14:19
PROVIDERS: ATTEND Family Medicine
DX: O24.311 Unspecified pre-existing diabetes mellitus in pregnancy, first trimester (principal); N92.6 Irregular menstruation, unspecified
CPT/HCPCS: 36415; 80053; 80061; 83036; 83721; 84403; 84443; 84703; 85025

== ENCOUNTER 2020-03-16 14:22 | Outpatient (CLI) | payer MEDICAID ==
--- NOTE | 2020-03-16 14:58 | XRAY Report ---
Reason: LOW BACK PAIN Procedure Date: 03/16/2020 Accession Number: [id number] / [id number] Procedure: XR - Lumbar Spine 2 View CPT Code: Final Report FULL RESULT: PROCEDURE: Lumbar Spine 2 View INDICATIONS: LOW BACK PAIN TECHNIQUE: 3 views of the lumbar spine were acquired. COMPARISON: None. FINDINGS: Bones: 5 [id number]-[id number] vertebrae are present. There is normal bony alignment. No vertebral body compression fractures. No suspicious bony lesions. SI joints appear symmetric. Soft tissues: Overlying bowel gas pattern is normal. No suspicious soft tissue calcifications. IMPRESSION: No significant osseous normality identified. Reviewed by: Thanh Diaz MD on 03/16/2020 2:57 PM PDT Approved by: Thanh Diaz MD on 03/16/2020 2:57 PM PDT Station ID: [id number]
== END 2020-03-16 14:23 | disposition home or self-care (01) ==
LOC: DI 14:22
PROVIDERS: ATTEND Family Medicine
DX: M54.5 Low back pain (principal)
CPT/HCPCS: 72100

== ENCOUNTER 2021-10-24 08:00 | Outpatient (CLI) | payer MEDICAID | END 2021-10-24 23:59 | disposition home or self-care (01) | LOC: LAB.N 08:00 | PROVIDERS: ATTEND Family Medicine | DX: I80.9 Phlebitis and thrombophlebitis of unspecified site (principal) | CPT/HCPCS: 36415; 85379 ==